=== PATIENT | male | born 1945 | race Caucasian/White ===

== ENCOUNTER → 2016-06-19 | Outpatient (CLI) | payer OTHER ==
[2013-10-12 19:07] VITALS: BP 130/80
[2016-06-19 10:17] LABS: CREATININE 1.02 mg/dL (0.70-1.30)
--- NOTE | 2016-06-19 14:51 | MRI ---
STUDY: MRI OF THE BRAIN WITHOUT AND WITH GADOLINIUM HISTORY: Mild cognitive impairment. Altered mental status. Forgetfulness. Technique: Multiplanar multi-sequence MRI of the brain was obtained utilizing standard departmental protocol. Sagittal and axial T1, axial T2, FLAIR, diffusion (DWI/ADC) images through the brain were performed. 18 cc of Omniscan was administered intravenously without reported complication following acquisition of informed written consent. Post gadolinium axial and coronal T1 weighted images were also perform ed and reviewed. Comparison: Head CT dated October 11, 2013. Findings: Pre gadolinium brain: The sulci, cisterns and ventricles are prominent consistent with diffuse volum e loss. There are scattered foci of T2 prolongation in the periventricular and subcortical white mat ter of both hemispheres. This is a nonspecific finding which likely represents mild microangiopathic change in a patient of this age. There is no evidence of acute territorial infarction, hemorrhage, mass, mass effect, or midline shif t. There are no abnormal intra-axial or extra-axial fluid collections. The major intracranial vascular flow voids appear intact. The left vertebral artery is dominant. The re is bilateral aphakia. Post gadolinium brain: Following the uneventful administration of intravenous gadolinium, there is n o evidence of abnormal parenchymal or leptomeningeal enhancement. IMPRESSION: 1. No evidence of acute intracranial abnormality. 2. Nonspecific white matter change and volume loss. Reported By:
== END ==
LOC: RAD 09:46
PROVIDERS: ATTEND Internal Medicine
DX: G31.84 Mild cognitive impairment of uncertain or unknown etiology (principal); E29.1 Testicular hypofunction
CPT/HCPCS: 36415; 70553; 82565; 84520

== ENCOUNTER → 2017-05-18 | Outpatient (CLI) | payer OTHER ==
[2013-10-12 19:07] VITALS: BP 130/80
[2017-05-18 09:53] LABS: CRYPTOSPORIDIUM PARVUM ANTIGEN NEGATIVE (NEGATIVE); GIARDIA LAMBLIA ANTIGEN NEGATIVE (NEGATIVE)
[2017-05-18 09:54] LABS: STOOL FOR WBC NEGATIVE (NEGATIVE)
== END ==
LOC: LAB 08:22
PROVIDERS: ATTEND Internal Medicine
DX: R19.7 Diarrhea, unspecified (principal); B96.89 Other specified bacterial agents as the cause of diseases classified elsewhere
CPT/HCPCS: 82274; 83630; 87045; 87328; 87329; 87336; 87427; 87449; 87493

== ENCOUNTER 2017-07-02 07:27 | Day surgery (SDC) | payer OTHER ==
[2017-07-02] MEDS ORDERED: D5 LR 1000 ML 1,000 ML IV ONE (07:32)
[2017-07-02] MEDS ORDERED: DIPRIVAN VIAL 20 ML ONE ×2 (09:24→09:48)
[2017-07-02 10:16] VITALS: BP 100/56
== END 2017-07-02 10:21 | disposition home or self-care (01) ==
LOC: SURG1 07:27
PROVIDERS: ATTEND Internal Medicine Gastroenterology
PROC: 0DBL8ZX Excision of Transverse Colon, Via Natural or Artificial Opening Endoscopic, Diagnostic (ICD-10-PCS; principal; 2017-07-02 09:00)
PROC: 0DBK8ZX Excision of Ascending Colon, Via Natural or Artificial Opening Endoscopic, Diagnostic (ICD-10-PCS; principal; 2017-07-02 09:00)
PROC: 0DBH8ZX Excision of Cecum, Via Natural or Artificial Opening Endoscopic, Diagnostic (ICD-10-PCS; principal; 2017-07-02 09:00)
PROC: 0DJD8ZZ Inspection of Lower Intestinal Tract, Via Natural or Artificial Opening Endoscopic (ICD-10-PCS; principal; 2017-07-02 09:00)
DX: Z12.11 Encounter for screening for malignant neoplasm of colon (principal); R19.4 Change in bowel habit; R10.31 Right lower quadrant pain; R10.32 Left lower quadrant pain; K63.5 Polyp of colon; K64.0 First degree hemorrhoids; K57.30 Diverticulosis of large intestine without perforation or abscess without bleeding; Z86.010 Personal history of colon polyps; D12.3 Benign neoplasm of transverse colon; D12.2 Benign neoplasm of ascending colon; D12.0 Benign neoplasm of cecum
CPT/HCPCS: 99100; A4217; J3490; J7120

== ENCOUNTER 2018-05-31 16:40 | Inpatient (IN) ==
[2018-05-31] MEDS ORDERED: VSL#3 PO SCH (18:15)
[2018-05-31 19:07] LABS: BASOPHILS % (AUTO) 0.5 % (0.2-1.0); EOSINOPHILS % (AUTO) 0.2 % (0.9-2.9); HEMATOCRIT 39.3 % (42.0-54.0); LYMPHOCYTES # (AUTO) 1.1 X10^3/uL (1.3-2.9); LYMPHOCYTES % (AUTO) 23.6 % (21.0-51.0); MEAN CORPUSCULAR HEMOGLOBIN 30.5 pg (27.0-34.0); MEAN CORPUSCULAR HGB CONC 33.2 g/dL (33.0-35.0); MEAN CORPUSCULAR VOLUME 91.9 fL (80.0-100.0); MEAN PLATELET VOLUME 8.1 fL (7.4-11.0); MONOCYTES # (AUTO) 0.5 x10^3/uL (0.3-0.8); MONOCYTES % (AUTO) 9.4 % (0.0-13.0); NEUTROPHILS # (AUTO) 3.2 x10^3/uL (2.2-4.8); NEUTROPHILS % (AUTO) 66.3 % (42.0-75.0); PLATELET COUNT 140 X10^3/uL (150.0-450.0); RED BLOOD COUNT 4.27 X10^6/uL (4.7-6.0); WHITE BLOOD COUNT 4.8 X10^3/uL (3.6-10.0)
[2018-05-31 19:20] LABS: ALANINE AMINOTRANSFERASE 31 Units/L (12-78); ALBUMIN 3.1 g/dL (3.4-5.0); ALKALINE PHOSPHATASE 52 Units/L (46-116); ASPARTATE AMINO TRANSFERASE 32 Units/L (15-37); BLOOD UREA NITROGEN 12 mg/dL (7-18); CALCIUM 8.9 mg/dL (8.5-10.1); CHLORIDE 99 mmol/L (98-107); COR CA(FOR HYPOALB) 9.6 mg/dL (8.5-10.1); CREATININE 1.18 mg/dL (0.70-1.30); SODIUM 137 mmol/L (136-145); TOTAL PROTEIN 7.1 g/dL (6.4-8.2); eGFR NON BLACK RACES > 60 (>60)
[2018-05-31] MEDS ORDERED: NS 1/2 1000 ML IV 1,000 ML ONE (19:51)
[2018-05-31] MEDS: NS 1/2 1000 ML IV 1,000 ML IV SCH (20:05)
[2018-05-31] MEDS: ROBITUSSIN DM PO SCH (20:50)
[2018-05-31] MEDS: LEVAQUIN PREMIX IV 500 MG 500 MG/100 ML BAG IV SCH (20:51)
[2018-05-31] MEDS: FORTAZ or TAZICEF VIAL INJ IVP SCH ×2 (20:58→22:00)
[2018-05-31 21:08] VITALS: BMI 23.7
[2018-05-31] MEDS: DUONEB 0.5 MG/3 MG NEB SCH (21:09)
[2018-06-01] MEDS: DUONEB 0.5 MG/3 MG NEB SCH ×6 (01:28→21:02)
[2018-06-01 05:13] LABS: BASOPHILS % (AUTO) 0.4 % (0.2-1.0); EOSINOPHILS % (AUTO) 0.4 % (0.9-2.9); HEMATOCRIT 34.9 % (42.0-54.0); HEMOGLOBIN 11.6 g/dL (13.5-18.0); LYMPHOCYTES # (AUTO) 0.5 X10^3/uL (1.3-2.9); MEAN CORPUSCULAR HEMOGLOBIN 30.5 pg (27.0-34.0); MEAN CORPUSCULAR HGB CONC 33.2 g/dL (33.0-35.0); MONOCYTES # (AUTO) 0.4 x10^3/uL (0.3-0.8); MONOCYTES % (AUTO) 12.7 % (0.0-13.0); NEUTROPHILS # (AUTO) 2.2 x10^3/uL (2.2-4.8); NEUTROPHILS % (AUTO) 71.5 % (42.0-75.0); PLATELET COUNT 121 X10^3/uL (150.0-450.0); RED BLOOD COUNT 3.79 X10^6/uL (4.7-6.0); RED CELL DISTRIBUTION WIDTH 18.4 % (11.6-16.5); WHITE BLOOD COUNT 3.1 X10^3/uL (3.6-10.0)
[2018-06-01 05:25] LABS: ALANINE AMINOTRANSFERASE 25 Units/L (12-78); ALBUMIN 2.6 g/dL (3.4-5.0); ALKALINE PHOSPHATASE 45 Units/L (46-116); ASPARTATE AMINO TRANSFERASE 27 Units/L (15-37); BLOOD UREA NITROGEN 10 mg/dL (7-18); CALCIUM 8.4 mg/dL (8.5-10.1); CARBON DIOXIDE 26.6 mmol/L (21-32); CHLORIDE 100 mmol/L (98-107); COR CA(FOR HYPOALB) 9.5 mg/dL (8.5-10.1); CREATININE 1.09 mg/dL (0.70-1.30); SODIUM 137 mmol/L (136-145); TOTAL PROTEIN 6.2 g/dL (6.4-8.2); eGFR NON BLACK RACES > 60 (>60)
[2018-06-01] MEDS ORDERED: NS 100 ML IV 100 ML ONE (05:25)
[2018-06-01] MEDS ORDERED: POTASSIUM CHL 40 MEQ/NS 0.45% 500 ML IV PRN (05:38)
[2018-06-01] MEDS ORDERED: POTASSIUM CHL 60 MEQ/NS 0.45% 500 ML IV PRN (05:38)
[2018-06-01] MEDS ORDERED: K-RIDER 10 MEQ/NS 100 ML 10 MEQ/100 ML BAG IV PRN (05:38)
[2018-06-01] MEDS ORDERED: POTASSIUM CHLORIDE LIQ 20 MEQ UDC PO PRN (05:38)
[2018-06-01] MEDS ORDERED: MICRO K EXTEN CAP 10 MEQ PO PRN (05:38)
--- NOTE | 2018-06-01 05:47 | CT ---
HISTORY: Dizziness and cough with fever Study: CT brain without contrast Comparison: 06/12/2017 Technique: Multiple axial images of the brain were obtained from the skull base to the vertex without administration of IV contrast. Findings: No acute intraparenchymal hemorrhage or mass can be identified. No extra-axial fluid collections are seen. No alteration in the attenuation of the brain parenchyma can be identified to suggest acute or subacute ischemic change. The ventricular system is symmetric and nondilated. The extracranial structures are grossly unremarkable. IMPRESSION: 1. No acute intracranial process can be identified. Reported By:
--- NOTE | 2018-06-01 05:50 | CT ---
HISTORY: Dizziness with cough and fever Study: CTA chest with contrast Comparison: 09/28/2015 Technique: Multiple axial images of the chest were obtained from the thoracic inlet to the upper abdomen after the administration of IV contrast. 3D reconstructions utilizing axial MIPS imaging was performed and reviewed Findings: The mediastinum does not demonstrate significant pathological lymphadenopathy. There is no paracardial effusion observed. The thoracic aorta is normal in its contour without evidence for aneurysmal dilatation. The central pulmonary arterial system does not demonstrate central filling defects to suggest pulmonary emboli. Evaluation of the lung parenchyma demonstrates mild bullous disease within the right and left apical lung zone without focal infiltrate or effusion.. Calcified pulmonary granuloma within the left lower lobe is noted to be present. The bony thorax is unremarkable in its appearance. The visualized portions of the upper abdomen are grossly unremarkable. IMPRESSION: A calcified pulmonary granuloma within the left lower lobe is observed. Mild bullous disease the right and left apical lung zone. No acute cardiopulmonary disease can be identified. Reported By:
--- NOTE | 2018-06-01 06:01 | RAD ---
HISTORY: Cough, dizziness Study: Chest PA and lateral Comparison: 06/12/2017, CT chest 05/31/2018 Findings: The heart is within normal limits in size. The pedro are normal. The lungs are hyperinflated but free of acute alveolar infiltrates. No pleural effusions are identified. The bony thorax is unremarkable. IMPRESSION: Lungs hyperinflated but clear, consistent with COPD in the appropriate clinical setting Reported By:
[2018-06-01] MEDS: FORTAZ or TAZICEF VIAL INJ IVP SCH ×3 (06:53→21:39)
--- NOTE | 2018-06-01 07:26 | RAD ---
HISTORY: Shortness of breath Study: Chest AP portable Comparison: 05/31/2018 Findings: The heart is within normal limits in size. The pedro are normal. The aorta is calcified. The lungs are mildly hyperinflated but free of acute infiltrates. Interstitial lung changes are present. No pleural effusions are identified. The bony thorax is unremarkable. IMPRESSION: Lungs hyperinflated but free of acute alveolar infiltrates Mild interstitial Reported By:
[2018-06-01] MEDS ORDERED: NS 1/2 1000 ML IV 1,000 ML ONE (08:16)
[2018-06-01] MEDS: CULTURELLE PRO-WELL PROBIOTIC CAP PO SCH (08:20)
[2018-06-01] MEDS: NS 1/2 1000 ML IV 1,000 ML IV SCH (08:20)
[2018-06-01] MEDS: ROBITUSSIN DM PO SCH ×4 (08:20→21:37)
[2018-06-01] MEDS: LEVAQUIN PREMIX IV 500 MG 500 MG/100 ML BAG IV SCH (08:20)
--- NOTE | 2018-06-01 09:13 | DR.UPDATE ---
H&P Update History and Physical Update: WAS SEEN IN THE OFFICE TODAY FOR COMPLAINTS OF A PRODUCTIVE COUGH, SHORNTESS OF BREATH, FEVER, CHILLS, AND DIZZINESS. HE ALSO REPORTED NAUSEA AND VOMITING THAT HE BELIEVES IS FROM THE NASAL DRAINAGE. HE REPORTED TAKING AUGMENTIN 875/125MG PO BID AND RESPIRATORY TREATMENTS AT HOME WITHOUT IMPROVEM ENT IN SYMPTOMS. HE WAS ADMITTED FOR FURTHER EVALUATION AND TREATMENT OF BRONCHOPNEUMONIA, FEVER, CHILLS, AND N/V. A H&P WAS COMPLETED PRIOR TO ADMISSION. WE PLAN TO OBTAIN LABS, CHEST XRAY, CHEST CT, BRAIN CT. WE WILL START IV ANTIBIOTICS AND RESPIRATORY TREATMENTS. OTHERWISE, WE WILL FOLLOW UP WITH AM LABS AND CONTINUE TO MONITOR. PATIENT HAS BEEN SEEN AND EXAMINED WITH NO CHANGES NOTED TO H&P. Changes noted: NO
[2018-06-01] MEDS ORDERED: ANTIVERT TAB 25 MG PO PRN (09:16)
[2018-06-01] MEDS: MAGNESIUM SULFATE 1 GRAM/100 mL PREMIX 1 GM/100 ML BAG IV PRN ×2 (09:29→10:43)
[2018-06-01] MEDS: K-DUR TAB 20 MEQ PO PRN (09:29)
[2018-06-01] MEDS ORDERED: FLONASE NASAL SPRAY ENOSTRIL SCH (09:30)
[2018-06-01] MEDS ORDERED: ASPIRIN EC 81 MG PO ONE (09:32)
[2018-06-01] MEDS ORDERED: ZESTRIL TAB 10 MG ONE (09:32)
[2018-06-01] MEDS ORDERED: SINGULAIR TAB 10 MG ONE (09:32)
[2018-06-01] MEDS ORDERED: PROTONIX TAB 40 MG ONE (09:33)
[2018-06-01] MEDS ORDERED: PEPCID TAB 20 MG ONE (09:33)
[2018-06-01] MEDS: ASPIRIN EC 81 MG PO SCH (09:37)
[2018-06-01] MEDS: ZESTRIL TAB 10 MG PO SCH ×2 (09:38→21:38)
[2018-06-01] MEDS: PEPCID TAB 20 MG PO SCH ×2 (09:38→21:38)
[2018-06-01] MEDS: SINGULAIR TAB 10 MG PO SCH (09:38)
[2018-06-01] MEDS: PROTONIX TAB 40 MG PO SCH ×2 (09:39→21:38)
[2018-06-01] MEDS ORDERED: NS 100 ML IV + SPIKE MINIBAG* 100 ML ONE (12:48)
[2018-06-01] MEDS ORDERED: LEVSIN/MAALOX/LIDOC VISC ONE (14:52)
[2018-06-01] MEDS: LEVSIN/MAALOX/LIDOC VISC PO PRN ×2 (15:00→21:37)
--- NOTE | 2018-06-01 16:22 | MRI ---
MRI BRAIN WITHOUT CONTRAST CLINICAL HISTORY: 73-year-old male with falls, weakness and dizziness. Patient complains of headache and blurred vision. COMPARISON: None. TECHNIQUE: Multiplanar, multisequence MR images of the brain were obtained without contrast. FINDINGS: There is no evidence of diffusion restriction. The craniocervical junction is normal. Pituitary and optic nerve complex are normal. Few scattered punctate T2 FLAIR signal hyperintensities are present within the subcortical, juxtacortical, periventricular and supraventricular white matter that are nonspecific in appearance but most likely to represent microvascular white matter ischemic changes. Normal signal characteristics and morphology are demonstrated within the cerebral cortex, corpus callosum, deep silva nuclei, brainstem and cerebellum. The major vascular flow voids, to include the dural venous sinuses, are intact. No abnormal susceptibility on gradient imaging. Age advanced cortical volume loss is present, with commensurate sulcal and ventricular prominence. The basilar cisterns are normal. Bilateral aphakia. The orbits and globes are otherwise within normal limits. Trace mucosal thickening frontal sinuses, maxillary and sphenoid sinuses with significant mucosal thickening throughout the ethmoid labyrinth with small polyps within the posterior nasopharynx within the middle meatus on the left and arising from the superior meatus on the right. Mastoid air cells and tympanic cavities are clear. IMPRESSION: 1. No acute ischemic or hemorrhagic insult. 2. Mild, chronic microvascular white matter ischemic disease with associated volume loss. 3. Mucosal thickening of the paranasal sinuses with nasal polyps as described above. Correlate clinically and recommend outpatient follow-up with otolaryngology. Reported By:
[2018-06-01] MEDS ORDERED: CRESTOR TAB 10 MG PO SCH (21:00)
[2018-06-01] MEDS ORDERED: ALFUZOSIN 10 MG PO SCH (21:00)
[2018-06-01] MEDS: ARICEPT TAB 10 MG PO SCH (21:38)
[2018-06-02] MEDS ORDERED: MAALOX or MYLANTA PO PRN (00:01)
[2018-06-02] MEDS: ZOFRAN TAB 4 MG PO PRN ×2 (00:02→23:20)
[2018-06-02] MEDS ORDERED: MAALOX or MYLANTA ONE (00:06)
[2018-06-02] MEDS ORDERED: NS 1/2 1000 ML IV 1,000 ML ONE ×2 (00:07→13:53)
[2018-06-02] MEDS: NS 1/2 1000 ML IV 1,000 ML IV SCH ×2 (00:14→13:58)
[2018-06-02] MEDS: DUONEB 0.5 MG/3 MG NEB SCH ×5 (00:51→16:30)
[2018-06-02] MEDS: LEVSIN/MAALOX/LIDOC VISC PO PRN ×2 (01:36→20:22)
[2018-06-02 05:20] LABS: BASOPHILS % (AUTO) 0.6 % (0.2-1.0); EOSINOPHILS % (AUTO) 1.1 % (0.9-2.9); HEMATOCRIT 35.4 % (42.0-54.0); HEMOGLOBIN 11.8 g/dL (13.5-18.0); LYMPHOCYTES # (AUTO) 0.4 X10^3/uL (1.3-2.9); LYMPHOCYTES % (AUTO) 19.7 % (21.0-51.0); MEAN CORPUSCULAR HEMOGLOBIN 30.6 pg (27.0-34.0); MEAN CORPUSCULAR HGB CONC 33.3 g/dL (33.0-35.0); MEAN CORPUSCULAR VOLUME 91.9 fL (80.0-100.0); MEAN PLATELET VOLUME 7.8 fL (7.4-11.0); MONOCYTES # (AUTO) 0.3 x10^3/uL (0.3-0.8); MONOCYTES % (AUTO) 15.1 % (0.0-13.0); NEUTROPHILS # (AUTO) 1.4 x10^3/uL (2.2-4.8); NEUTROPHILS % (AUTO) 63.5 % (42.0-75.0); PLATELET COUNT 120 X10^3/uL (150.0-450.0); RED BLOOD COUNT 3.86 X10^6/uL (4.7-6.0); WHITE BLOOD COUNT 2.2 X10^3/uL (3.6-10.0)
[2018-06-02 05:38] LABS: ALANINE AMINOTRANSFERASE 24 Units/L (12-78); ALBUMIN 2.7 g/dL (3.4-5.0); ALKALINE PHOSPHATASE 46 Units/L (46-116); ASPARTATE AMINO TRANSFERASE 30 Units/L (15-37); BLOOD UREA NITROGEN 7 mg/dL (7-18); CALCIUM 8.4 mg/dL (8.5-10.1); CHLORIDE 103 mmol/L (98-107); COR CA(FOR HYPOALB) 9.4 mg/dL (8.5-10.1); CREATININE 1.06 mg/dL (0.70-1.30); SODIUM 137 mmol/L (136-145); TOTAL PROTEIN 6.2 g/dL (6.4-8.2); eGFR NON BLACK RACES > 60 (>60)
[2018-06-02 06:10] LABS: BAND NEUTROPHILS % 1 % (0-10)
[2018-06-02 06:11] LABS: PLATELET MORPHOLOGY COMMENT NORMAL (NORMAL)
[2018-06-02] MEDS: FORTAZ or TAZICEF VIAL INJ IVP SCH ×3 (06:12→21:11)
[2018-06-02] MEDS: KLOR-CON PO PRN (06:19)
[2018-06-02] MEDS: TUSSIONEX PENNKINETIC SUSP PO PRN (06:52)
--- NOTE | 2018-06-02 06:55 | RAD ---
HISTORY: Angina Study: Chest AP portable Comparison: 05/31/2018 Findings: The heart is within normal limits in size. The pedro are normal. The aorta is calcified. The lungs are free of acute alveolar infiltrates. Mild stable interstitial lung changes are present likely chronic. No acute alveolar infiltrates or pleural effusions are identified. The bony thorax is unremarkable. IMPRESSION: Mild interstitial lung changes, stable Reported By:
--- NOTE | 2018-06-02 08:41 | PCM.PROG ---
Progress Note - Progress Note for Day of Date of Exam: 06/01/18 - Subjective Subjective: WAS ADMITTED FOR BRONCHOPNEUMONIA, FEVER, AND DIZZINESS. TODAY, HE IS ALERT AND ORIENTED, LYING IN BED ON MORNING ROUNDS. HE CONTINUES WITH COMPLAINTS OF SHORNTESS OF BREATH AND A PRODUCTIVE COUGH. HE ALSO CONTINUES WITH WEAKNESS AND DIZZINESS. SPOUSE REPORTS THAT HE HAS FALLEN A LOT AT HOME LATELY. ON EXAMINATION, HEART IS REGULAR IN RATE AND RHYTHM. HE CONTINUES WITH SCATTERED WHEEZING. ABDOMEN IS ROUND, SOFT, AND NON-TENDER WITH NORMAL BOWEL SOUNDS NOTED IN ALL QUADRANTS. HIS VITALS THIS MORNING ARE 98.7-88-20-92%RA-161/72. LABS WERE OBTAINED. ABNORMAL LAB VALUES INCLUDE THE FOLLOWING: WBC 3.1, RBC 3.79, HGB 11.6, HCT 34.9, PLT COUNT 121, POTASSIUM 2.9, CALCIUM 8.4, ALK PHOS 45, TOTAL PROTEIN 6.2 ,ALBUMIN 2.6. BLOOD AND SPUTUM CULTURE PENDING. GRAM STAIN REPORTS MODERATED GRAM POSITIVE COCCI. A CHEST XRAY WAS OBTAINED TODAY AND REVEALED: Lungs hyperinflated but free of acute alveolar infiltrates. Mild interstitial. CHEST CT WAS OBTAINED ON ADMISSION AND REVEALED: A calcified pulmonary granuloma within the left lower lobe is observed. Mild bullous disease the right and left apical lung zone. No acute cardiopulmonary disease can be identified. A BRAIN CT WAS OBTAINED AND REVEALED: No acute intracranial process can be identified. HE IS CURRENTLY RECEIVING IV ANTI BIOTICS, RESPIRATORY TX, AND SUPPLEMENTAL OXYGEN. TODAY, WE WILL OBTAIN A BRAIN MRI AND OBTAIN ORTHOSTATIC BLOOD PRESSURES. OTHERWISE, WE WILL FOLLOW UP WITH AM LABS AND CONTINUE TO MONITOR. - Past Medical Family Social History Past Med/Fam/Surg Hx: No changes since H&P Allergies: Allergies No Known Drug Allergies Allergy (Verified 07/02/17 07:39) - Review of Systems ROS: No change since H&P - Vital Signs and I&O's Vital Signs: Temperature 98.4 F Pulse Rate [Right Brachial] 84 Pulse Rate 101 Respiratory Rate 18 Blood Pressure [Left Arm] 160/70 Blood Pressure [Standing] 122/68 Blood Pressure [Sitting] 142/69 Blood Pressure [Lying] 108/65 Blood Pressure 125/63 O2 Sat by Pulse Oximetry 94 Intake and Output: Intake & Output 05/30/18 05/31/18 06/01/18 06/02/18 11:59 11:59 11:59 11:59 Intake Total 1170 / 1170 3050 / 3050 Output Total 600 / 600 Balance 1170 / 1170 2450 / 2450 - Physical Exam Oriented: Normal Eyes: Normal Ear: Normal Nose: Normal Throat: Normal Respiratory: Generalized, Wheezes Cardiovascular: Normal : Normal Auscultation: Bowel Sounds: Normal Palpation: Normal Tenderness: Normal Skin: Normal Musculoskeletal: Normal Psychiatric: Normal Mood Description: Calm Affect: Normal Speech Pattern: Clear, Appropriate - Laboratory and Diagnostics Result Diagrams: 06/02/18 04:52 06/02/18 04:52 Labs: 05/31/18 21:15 Sputum - Expectorated Sputum - Final Laboratory WBC 2.2 X10^3/uL (3.6-10.0) L 06/02/18 04:52 RBC 3.86 X10^6/uL (4.7-6.0) L 06/02/18 04:52 Hgb 11.8 g/dL (13.5-18.0) L 06/02/18 04:52 Hct 35.4 % (42.0-54.0) L 06/02/18 04:52 MCV 91.9 fL (80.0-100.0) 06/02/18 04:52 MCH 30.6 pg (27.0-34.0) 06/02/18 04:52 MCHC 33.3 g/dL (33.0-35.0) 06/02/18 04:52 RDW 19.0 % (11.6-16.5) H 06/02/18 04:52 Plt Count 120 X10^3/uL (150.0-450.0) L 06/02/18 04:52 Plt Count Comment Adequate (ADEQUATE) 06/02/18 04:52 MPV 7.8 fL (7.4-11.0) 06/02/18 04:52 Neut % (Auto) 63.5 % (42.0-75.0) 06/02/18 04:52 Lymph % (Auto) 19.7 % (21.0-51.0) L 06/02/18 04:52 Duval % (Auto) 15.1 % (0.0-13.0) H 06/02/18 04:52 Eos % (Auto) 1.1 % (0.9-2.9) 06/02/18 04:52 Baso % (Auto) 0.6 % (0.2-1.0) 06/02/18 04:52 Neut # (Auto) 1.4 x10^3/uL (2.2-4.8) L 06/02/18 04:52 Lymph # (Auto) 0.4 X10^3/uL (1.3-2.9) L 06/02/18 04:52 Duval # (Auto) 0.3 x10^3/uL (0.3-0.8) 06/02/18 04:52 Eos # (Auto) 0.0 x10^3/uL (0.0-0.2) 06/02/18 04:52 Baso # (Auto) 0.0 X10^3/uL (0.0-0.1) 06/02/18 04:52 Absolute Nucleated RBC 0.2 /100WBC 06/02/18 04:52 Total Counted 100 06/02/18 04:52 Neutrophils % (Manual) 67 % (39-76) 06/02/18 04:52 Band Neutrophils % 1 % (0-10) 06/02/18 04:52 Lymphocytes % (Manual) 20 % (13-43) 06/02/18 04:52 Monocytes % (Manual) 10 % (4-9) H 06/02/18 04:52 Eosinophils % (Manual) 2 % (0-6) 06/02/18 04:52 Plt Morphology Comment Normal (NORMAL) 06/02/18 04:52 RBC Morphology Normal (NORMAL) 06/02/18 04:52 Sodium 137 mmol/L (136-145) 06/02/18 04:52 Corrected Sodium TNP 06/02/18 04:52 Potassium 3.3 mmol/L (3.5-5.1) L 06/02/18 04:52 Chloride 103 mmol/L (98-107) 06/02/18 04:52 Carbon Dioxide 24.0 mmol/L (21-32) 06/02/18 04:52 BUN 7 mg/dL (7-18) 06/02/18 04:52 Creatinine 1.06 mg/dL (0.70-1.30) 06/02/18 04:52 Est GFR (MDRD) Af Amer > 60 (>60) 06/02/18 04:52 Est GFR (MDRD) Non-Af > 60 (>60) 06/02/18 04:52 Glucose 92 mg/dL (65-99) 06/02/18 04:52 Calcium 8.4 mg/dL (8.5-10.1) L 06/02/18 04:52 Corrected Calcium 9.4 mg/dL (8.5-10.1) 06/02/18 04:52 Magnesium 2.0 mg/dL (1.7-2.9) 06/02/18 04:52 Total Bilirubin 0.30 mg/dL (0.2-1.0) 06/02/18 04:52 AST 30 Units/L (15-37) 06/02/18 04:52 ALT 24 Units/L (12-78) 06/02/18 04:52 Alkaline Phosphatase 46 Units/L (46-116) 06/02/18 04:52 Total Protein 6.2 g/dL (6.4-8.2) L 06/02/18 04:52 Albumin 2.7 g/dL (3.4-5.0) L 06/02/18 04:52 Globulin 3.5 g/dL (2.5-4.5) 06/02/18 04:52 Albumin/Globulin Ratio 0.8 Ratio (1.1-2.1) L 06/02/18 04:52 - Plan (1) Bronchopneumonia Status: Acute Plan: IV LEVAQUIN, IV FORTAZ, RESPIRATORY TX, SUPPLEMENTAL OXYGEN, CONTINUE TO MONITOR (2) Generalized weakness Status: Acute Plan: OBTAIN BRAIN MRI, CONTINUE TO MONITOR (3) Dizziness Status: Acute (4) Frequent falls Status: Acute
[2018-06-02] MEDS: ROBITUSSIN DM PO SCH ×4 (08:56→20:25)
[2018-06-02] MEDS: ASPIRIN EC 81 MG PO SCH (08:56)
[2018-06-02] MEDS: SINGULAIR TAB 10 MG PO SCH (08:56)
[2018-06-02] MEDS: CULTURELLE PRO-WELL PROBIOTIC CAP PO SCH (08:56)
[2018-06-02] MEDS: LEVAQUIN PREMIX IV 500 MG 500 MG/100 ML BAG IV SCH (08:57)
[2018-06-02] MEDS: PROTONIX TAB 40 MG PO SCH ×2 (08:57→20:24)
[2018-06-02] MEDS: PEPCID TAB 20 MG PO SCH ×2 (08:57→20:24)
[2018-06-02] MEDS: ZESTRIL TAB 10 MG PO SCH ×2 (08:57→20:24)
[2018-06-02] MEDS: ECOTRIN TAB 325 MG PO SCH (10:10)
[2018-06-02] MEDS: K-DUR TAB 20 MEQ PO PRN (18:47)
--- NOTE | 2018-06-02 19:46 | PCM.PROG ---
Progress Note - Progress Note for Day of Date of Exam: 06/02/18 - Subjective Subjective: WAS ADMITTED FOR BRONCHOPNEUMONIA, FEVER, AND DIZZINESS. TODAY, HE IS ALERT AND ORIENTED, LYING IN BED ON MORNING ROUNDS. HE CONTINUES WITH COMPLAINTS OF SHORNTESS OF BREATH , PRODUCTIVE COUGH, AND GENERALIZED WEAKNESS. ON EXAMINATION, HEART IS REGULAR IN RATE AND RHYTHM. HE CONTINUES WITH SCATTERED WHEEZING. ABDOMEN IS ROUND, SOFT, AND NON-TENDER WITH NORMAL BOWEL SOUNDS NOTED IN ALL QUADRANTS. HIS VITALS THIS MORNING ARE 98.4-84-18-94%-160/70. LABS WERE OBTAINED. ABNORMAL LAB VALUES INCLUDE THE FOLLOWING: WBC 2.2, RBC 3.86, HGB 11.8, HCT 35.4, POTASSIUM 3.3, CALCIUM 8.4, TOTAL PROTEIN 6.2, ALBUMIN 2.7. BLOOD AND SPUTUM CULTURE PENDING. GRAM STAIN REPORTS MODERATED GRAM POSITIVE COCCI. A CHEST XRAY WAS OBTAINED TODAY AND REVEALED: MILD, INTERSTITIAL LUNG CHANGES, STABLE. A BRAIN MRI WAS OBTAINED YESTERDAY AND REVEALED: No acute ischemic or hemorrhagic insult. Mild, chronic microvascular white matter ischemic disease with associated volume loss. Mucosal thickening of the paranasal sinuses with nasal polyps as described above. Correlate clinically and recommend outpatient follow-up with otolaryngology. HE IS CURRENTLY RECEIVING IV ANTIBIOTICS, RESPIRATORY TX, AND SUPPLEMENTAL OXYGEN. TODAY, WE WILL START ECOTRIN 325MG PO DAILY, INCREASE CRESTOR TO 40MG HS, AND START AMLODIPINE 5MG HS. OTHERWISE, WE WILL FOLLOW UP WITH AM LABS AND CONTINUE TO MONITOR. - Past Medical Family Social History Past Med/Fam/Surg Hx: No changes since H&P Allergies: Allergies No Known Drug Allergies Allergy (Verified 07/02/17 07:39) - Review of Systems ROS: No change since H&P - Vital Signs and I&O's Vital Signs: Temperature 98.0 F Pulse Rate [Left Brachial] 80 Pulse Rate [Right Brachial] 84 Pulse Rate 92 Respiratory Rate 18 Blood Pressure [Left Arm] 162/88 Blood Pressure [Standing] 122/68 Blood Pressure [Sitting] 142/69 Blood Pressure [Lying] 108/65 Blood Pressure 125/63 O2 Sat by Pulse Oximetry 96 Intake and Output: Intake & Output 05/31/18 06/01/18 06/02/18 06/03/18 11:59 11:59 11:59 11:59 Intake Total 1170 / 1170 3050 / 3050 1160 / 1160 Output Total 600 / 600 Balance 1170 / 1170 2450 / 2450 1160 / 1160 - Physical Exam Oriented: Normal Eyes: Normal Ear: Normal Nose: Normal Throat: Normal Respiratory: Generalized, Wheezes Cardiovascular: Normal : Normal Auscultation: Bowel Sounds: Normal Palpation: Normal Tenderness: Normal Skin: Normal Musculoskeletal: Normal Psychiatric: Normal Mood Description: Calm Affect: Normal Speech Pattern: Clear, Appropriate - Laboratory and Diagnostics Result Diagrams: 06/02/18 04:52 06/02/18 08:32 Labs: 05/31/18 18:55 Blood Blood Culture - Preliminary 05/31/18 18:50 Blood Blood Culture - Preliminary 05/31/18 21:15 Sputum - Expectorated Sputum Sputum Culture - Preliminary 05/31/18 21:15 Sputum - Expectorated Sputum - Final Laboratory WBC 2.2 X10^3/uL (3.6-10.0) L 06/02/18 04:52 RBC 3.86 X10^6/uL (4.7-6.0) L 06/02/18 04:52 Hgb 11.8 g/dL (13.5-18.0) L 06/02/18 04:52 Hct 35.4 % (42.0-54.0) L 06/02/18 04:52 MCV 91.9 fL (80.0-100.0) 06/02/18 04:52 MCH 30.6 pg (27.0-34.0) 06/02/18 04:52 MCHC 33.3 g/dL (33.0-35.0) 06/02/18 04:52 RDW 19.0 % (11.6-16.5) H 06/02/18 04:52 Plt Count 120 X10^3/uL (150.0-450.0) L 06/02/18 04:52 Plt Count Comment Adequate (ADEQUATE) 06/02/18 04:52 MPV 7.8 fL (7.4-11.0) 06/02/18 04:52 Neut % (Auto) 63.5 % (42.0-75.0) 06/02/18 04:52 Lymph % (Auto) 19.7 % (21.0-51.0) L 06/02/18 04:52 Parmer % (Auto) 15.1 % (0.0-13.0) H 06/02/18 04:52 Eos % (Auto) 1.1 % (0.9-2.9) 06/02/18 04:52 Baso % (Auto) 0.6 % (0.2-1.0) 06/02/18 04:52 Neut # (Auto) 1.4 x10^3/uL (2.2-4.8) L 06/02/18 04:52 Lymph # (Auto) 0.4 X10^3/uL (1.3-2.9) L 06/02/18 04:52 Parmer # (Auto) 0.3 x10^3/uL (0.3-0.8) 06/02/18 04:52 Eos # (Auto) 0.0 x10^3/uL (0.0-0.2) 06/02/18 04:52 Baso # (Auto) 0.0 X10^3/uL (0.0-0.1) 06/02/18 04:52 Absolute Nucleated RBC 0.2 /100WBC 06/02/18 04:52 Total Counted 100 06/02/18 04:52 Neutrophils % (Manual) 67 % (39-76) 06/02/18 04:52 Band Neutrophils % 1 % (0-10) 06/02/18 04:52 Lymphocytes % (Manual) 20 % (13-43) 06/02/18 04:52 Monocytes % (Manual) 10 % (4-9) H 06/02/18 04:52 Eosinophils % (Manual) 2 % (0-6) 06/02/18 04:52 Plt Morphology Comment Normal (NORMAL) 06/02/18 04:52 RBC Morphology Normal (NORMAL) 06/02/18 04:52 Sodium 137 mmol/L (136-145) 06/02/18 04:52 Corrected Sodium TNP 06/02/18 04:52 Potassium 3.5 mmol/L (3.5-5.1) 06/02/18 08:32 Chloride 103 mmol/L (98-107) 06/02/18 04:52 Carbon Dioxide 24.0 mmol/L (21-32) 06/02/18 04:52 BUN 7 mg/dL (7-18) 06/02/18 04:52 Creatinine 1.06 mg/dL (0.70-1.30) 06/02/18 04:52 Est GFR (MDRD) Af Amer > 60 (>60) 06/02/18 04:52 Est GFR (MDRD) Non-Af > 60 (>60) 06/02/18 04:52 Glucose 92 mg/dL (65-99) 06/02/18 04:52 Calcium 8.4 mg/dL (8.5-10.1) L 06/02/18 04:52 Corrected Calcium 9.4 mg/dL (8.5-10.1) 06/02/18 04:52 Magnesium 2.0 mg/dL (1.7-2.9) 06/02/18 04:52 Total Bilirubin 0.30 mg/dL (0.2-1.0) 06/02/18 04:52 AST 30 Units/L (15-37) 06/02/18 04:52 ALT 24 Units/L (12-78) 06/02/18 04:52 Alkaline Phosphatase 46 Units/L (46-116) 06/02/18 04:52 Total Protein 6.2 g/dL (6.4-8.2) L 06/02/18 04:52 Albumin 2.7 g/dL (3.4-5.0) L 06/02/18 04:52 Globulin 3.5 g/dL (2.5-4.5) 06/02/18 04:52 Albumin/Globulin Ratio 0.8 Ratio (1.1-2.1) L 06/02/18 04:52 - Plan (1) Bronchopneumonia Status: Acute Plan: IV LEVAQUIN, IV FORTAZ, RESPIRATORY TX, SUPPLEMENTAL OXYGEN, CONTINUE TO MONITOR (2) Generalized weakness Status: Acute Plan: OBTAIN BRAIN MRI, CONTINUE TO MONITOR (3) Dizziness Status: Acute (4) Frequent falls Status: Acute (5) Hypertension Status: Chronic Qualifiers: Hypertension type: essential hypertension Qualified Code(s): I10 - Essential (primary) hypertension Plan: CONTINUE LISINOPRIL, START AMLODIPINE 5MG PO HS
[2018-06-02] MEDS: CRESTOR TAB 10 MG PO SCH (20:24)
[2018-06-02] MEDS: ARICEPT TAB 10 MG PO SCH (20:25)
[2018-06-02] MEDS: NORVASC TAB 5 MG PO SCH (20:25)
[2018-06-03] MEDS ORDERED: NS 1/2 1000 ML IV 1,000 ML ONE ×2 (02:43→13:32)
[2018-06-03] MEDS: NS 1/2 1000 ML IV 1,000 ML IV SCH ×2 (02:56→16:11)
[2018-06-03] MEDS: XOPENEX 1.25 MG/3 ML NEBULE NEB SCH ×4 (05:05→17:05)
[2018-06-03 05:31] LABS: BASOPHILS % (AUTO) 0.8 % (0.2-1.0); EOSINOPHILS % (AUTO) 1.6 % (0.9-2.9); HEMATOCRIT 36.2 % (42.0-54.0); LYMPHOCYTES # (AUTO) 0.6 X10^3/uL (1.3-2.9); LYMPHOCYTES % (AUTO) 23.3 % (21.0-51.0); MEAN CORPUSCULAR HEMOGLOBIN 30.8 pg (27.0-34.0); MEAN CORPUSCULAR HGB CONC 33.2 g/dL (33.0-35.0); MEAN CORPUSCULAR VOLUME 92.8 fL (80.0-100.0); MEAN PLATELET VOLUME 7.9 fL (7.4-11.0); MONOCYTES # (AUTO) 0.4 x10^3/uL (0.3-0.8); MONOCYTES % (AUTO) 16.6 % (0.0-13.0); NEUTROPHILS # (AUTO) 1.5 x10^3/uL (2.2-4.8); NEUTROPHILS % (AUTO) 57.7 % (42.0-75.0); PLATELET COUNT 124 X10^3/uL (150.0-450.0); RED CELL DISTRIBUTION WIDTH 18.7 % (11.6-16.5); WHITE BLOOD COUNT 2.5 X10^3/uL (3.6-10.0)
[2018-06-03] MEDS: FORTAZ or TAZICEF VIAL INJ IVP SCH ×3 (05:32→21:00)
[2018-06-03] MEDS: TUSSIONEX PENNKINETIC SUSP PO PRN ×2 (05:32→22:53)
[2018-06-03 05:59] LABS: ALANINE AMINOTRANSFERASE 33 Units/L (12-78); ALBUMIN 2.6 g/dL (3.4-5.0); ALKALINE PHOSPHATASE 52 Units/L (46-116); ASPARTATE AMINO TRANSFERASE 43 Units/L (15-37); BLOOD UREA NITROGEN 4 mg/dL (7-18); CALCIUM 8.5 mg/dL (8.5-10.1); CARBON DIOXIDE 25.8 mmol/L (21-32); CHLORIDE 103 mmol/L (98-107); COR CA(FOR HYPOALB) 9.6 mg/dL (8.5-10.1); SODIUM 138 mmol/L (136-145); TOTAL PROTEIN 6.2 g/dL (6.4-8.2); eGFR NON BLACK RACES > 60 (>60)
[2018-06-03] MEDS: K-DUR TAB 20 MEQ PO PRN (06:14)
--- NOTE | 2018-06-03 06:55 | RAD ---
HISTORY: Shortness of breath Study: Chest AP portable Comparison: 06/02/2018 Findings: The heart is within normal limits in size. The pedro are normal. The aorta is calcified. The lungs are free of acute alveolar infiltrates. No pleural effusions are identified. Stable interstitial lung changes are present likely chronic. The bony thorax is unremarkable. IMPRESSION: Stable interstitial lung changes Reported By:
[2018-06-03] MEDS: ECOTRIN TAB 325 MG PO SCH (08:49)
[2018-06-03] MEDS: LEVAQUIN PREMIX IV 500 MG 500 MG/100 ML BAG IV SCH (08:49)
[2018-06-03] MEDS: SINGULAIR TAB 10 MG PO SCH (08:50)
[2018-06-03] MEDS: ZESTRIL TAB 10 MG PO SCH ×2 (08:50→20:53)
[2018-06-03] MEDS: CULTURELLE PRO-WELL PROBIOTIC CAP PO SCH (08:51)
[2018-06-03] MEDS: ROBITUSSIN DM PO SCH ×4 (08:51→20:53)
[2018-06-03] MEDS: PROTONIX TAB 40 MG PO SCH ×2 (08:51→20:53)
[2018-06-03] MEDS: PEPCID TAB 20 MG PO SCH ×2 (08:51→20:53)
[2018-06-03] MEDS: LEVSIN/MAALOX/LIDOC VISC PO PRN (20:52)
[2018-06-03] MEDS: CRESTOR TAB 10 MG PO SCH (20:53)
[2018-06-03] MEDS: ARICEPT TAB 10 MG PO SCH (20:53)
[2018-06-03] MEDS: NORVASC TAB 5 MG PO SCH (20:53)
[2018-06-04] MEDS: XOPENEX 1.25 MG/3 ML NEBULE NEB SCH ×2 (00:15→05:19)
[2018-06-04] MEDS: NS 1/2 1000 ML IV 1,000 ML IV SCH ×2 (04:46→10:02)
[2018-06-04] MEDS ORDERED: NS 1/2 1000 ML IV 1,000 ML ONE (04:47)
[2018-06-04 05:05] LABS: BASOPHILS % (AUTO) 0.6 % (0.2-1.0); EOSINOPHILS # (AUTO) 0.1 x10^3/uL (0.0-0.2); EOSINOPHILS % (AUTO) 2.8 % (0.9-2.9); HEMOGLOBIN 12.4 g/dL (13.5-18.0); LYMPHOCYTES # (AUTO) 0.9 X10^3/uL (1.3-2.9); LYMPHOCYTES % (AUTO) 27.5 % (21.0-51.0); MEAN CORPUSCULAR HEMOGLOBIN 30.8 pg (27.0-34.0); MEAN CORPUSCULAR HGB CONC 33.6 g/dL (33.0-35.0); MEAN CORPUSCULAR VOLUME 91.6 fL (80.0-100.0); MONOCYTES # (AUTO) 0.5 x10^3/uL (0.3-0.8); MONOCYTES % (AUTO) 15.3 % (0.0-13.0); NEUTROPHILS # (AUTO) 1.7 x10^3/uL (2.2-4.8); NEUTROPHILS % (AUTO) 53.8 % (42.0-75.0); PLATELET COUNT 127 X10^3/uL (150.0-450.0); RED BLOOD COUNT 4.04 X10^6/uL (4.7-6.0); RED CELL DISTRIBUTION WIDTH 18.7 % (11.6-16.5); WHITE BLOOD COUNT 3.3 X10^3/uL (3.6-10.0)
[2018-06-04] MEDS: FORTAZ or TAZICEF VIAL INJ IVP SCH (05:06)
[2018-06-04 05:19] LABS: ALANINE AMINOTRANSFERASE 36 Units/L (12-78); ALBUMIN 2.6 g/dL (3.4-5.0); ALKALINE PHOSPHATASE 57 Units/L (46-116); ASPARTATE AMINO TRANSFERASE 55 Units/L (15-37); BLOOD UREA NITROGEN 6 mg/dL (7-18); CALCIUM 8.6 mg/dL (8.5-10.1); CARBON DIOXIDE 23.7 mmol/L (21-32); CHLORIDE 103 mmol/L (98-107); COR CA(FOR HYPOALB) 9.7 mg/dL (8.5-10.1); SODIUM 138 mmol/L (136-145); TOTAL PROTEIN 6.1 g/dL (6.4-8.2); eGFR NON BLACK RACES > 60 (>60)
[2018-06-04] MEDS: KLOR-CON PO PRN (05:31)
--- NOTE | 2018-06-04 06:17 | RAD ---
HISTORY: Shortness of breath Study: Chest AP portable Comparison: 06/03/2018 Findings: The heart is within normal limits in size. The pedro are normal. The aorta is calcified. The lungs are hypo inflated but free of acute alveolar infiltrates. Interstitial lung changes are present, stable. The bony thorax is unremarkable. IMPRESSION: No significant change from the prior examination Reported By:
[2018-06-04] MEDS: PEPCID TAB 20 MG PO SCH (07:59)
[2018-06-04] MEDS: ZESTRIL TAB 10 MG PO SCH (07:59)
[2018-06-04] MEDS: PROTONIX TAB 40 MG PO SCH (07:59)
[2018-06-04] MEDS: LEVAQUIN PREMIX IV 500 MG 500 MG/100 ML BAG IV SCH (07:59)
[2018-06-04] MEDS: ECOTRIN TAB 325 MG PO SCH (07:59)
[2018-06-04] MEDS: CULTURELLE PRO-WELL PROBIOTIC CAP PO SCH (07:59)
[2018-06-04] MEDS: ROBITUSSIN DM PO SCH (07:59)
[2018-06-04] MEDS: SINGULAIR TAB 10 MG PO SCH (07:59)
[2018-06-04 09:30] VITALS: BP 128/65
--- NOTE | 2018-06-04 09:57 | PCM.PROG ---
Progress Note - Progress Note for Day of Date of Exam: 06/03/18 - Subjective Subjective: WAS ADMITTED FOR BRONCHOPNEUMONIA, FEVER, AND DIZZINESS. TODAY, HE IS ALERT AND ORIENTED, LYING IN BED ON MORNING ROUNDS. HE CONTINUES WITH COMPLAINTS OF SHORNTESS OF BREATH , PRODUCTIVE COUGH, AND GENERALIZED WEAKNESS. ON EXAMINATION, HEART IS REGULAR IN RATE AND RHYTHM. HE CONTINUES WITH SCATTERED WHEEZING. ABDOMEN IS ROUND, SOFT, AND NON-TENDER WITH NORMAL BOWEL SOUNDS NOTED IN ALL QUADRANTS. HIS VITALS THIS MORNING ARE 98.5-85-20-91%-143/68. LABS WERE OBTAINED. ABNORMAL LAB VALUES INCLUDE THE FOLLOWING: WBC 2.5, RBC 3.90, HGB 12.0, HCT 36.2, PLT COUNT 124, POTASSIUM 3.2, BUN 6, AST 55, TOTAL PROTEIN 6.1, ALBUMIN 2.6. BLOOD AND SPUTUM CULTURE PENDING. A CHEST XRAY WAS OBTAINED TODAY AND REVEALED: Stable interstitial lung changes. HE IS CURRENTLY RECEIVING IV ANTIBIOTICS, RESPIRATORY TX, AND SUPPLEMENTAL OXYGEN. TODAY, WE WILL CONTINUE WITH CURRENT PLAN OF CARE. OTHERWISE, WE WILL FOLLOW UP WITH AM LABS AND CONTINUE TO MONITOR. - Past Medical Family Social History Past Med/Fam/Surg Hx: No changes since H&P Allergies: Allergies No Known Drug Allergies Allergy (Verified 07/02/17 07:39) - Review of Systems ROS: No change since H&P - Vital Signs and I&O's Vital Signs: Temperature 98.3 F Pulse Rate [Left Brachial] 94 Pulse Rate [Right Brachial] 88 Pulse Rate 81 Respiratory Rate 20 Blood Pressure [Left Arm] 128/65 Blood Pressure [Standing] 122/68 Blood Pressure [Sitting] 142/69 Blood Pressure [Lying] 108/65 Blood Pressure 125/63 O2 Sat by Pulse Oximetry 95 Intake and Output: Intake & Output 06/01/18 06/02/18 06/03/18 06/04/18 11:59 11:59 11:59 11:59 Intake Total 1170 / 1170 3050 / 3050 3200 / 3200 2495 / 2495 Output Total 600 / 600 600 / 600 500 / 500 Balance 1170 / 1170 2450 / 2450 2600 / 2600 1994 - Physical Exam Oriented: Normal Eyes: Normal Ear: Normal Nose: Normal Throat: Normal Respiratory: Generalized, Wheezes Cardiovascular: Normal : Normal Auscultation: Bowel Sounds: Normal Tenderness: Normal Skin: Normal Musculoskeletal: Normal Psychiatric: Normal Mood Description: Calm Affect: Normal Speech Pattern: Clear, Appropriate - Laboratory and Diagnostics Result Diagrams: 06/04/18 04:27 06/04/18 08:20 Labs: 05/31/18 21:15 Sputum - Expectorated Sputum Sputum Culture - Final 05/31/18 21:15 Sputum - Expectorated Sputum - Final 05/31/18 18:55 Blood Blood Culture - Preliminary 05/31/18 18:50 Blood Blood Culture - Preliminary Laboratory WBC 3.3 X10^3/uL (3.6-10.0) L 06/04/18 04:27 RBC 4.04 X10^6/uL (4.7-6.0) L 06/04/18 04:27 Hgb 12.4 g/dL (13.5-18.0) L 06/04/18 04:27 Hct 37.0 % (42.0-54.0) L 06/04/18 04:27 MCV 91.6 fL (80.0-100.0) 06/04/18 04:27 MCH 30.8 pg (27.0-34.0) 06/04/18 04:27 MCHC 33.6 g/dL (33.0-35.0) 06/04/18 04:27 RDW 18.7 % (11.6-16.5) H 06/04/18 04:27 Plt Count 127 X10^3/uL (150.0-450.0) L 06/04/18 04:27 Plt Count Comment Adequate (ADEQUATE) 06/02/18 04:52 MPV 8.0 fL (7.4-11.0) 06/04/18 04:27 Neut % (Auto) 53.8 % (42.0-75.0) 06/04/18 04:27 Lymph % (Auto) 27.5 % (21.0-51.0) 06/04/18 04:27 [place] % (Auto) 15.3 % (0.0-13.0) H 06/04/18 04:27 Eos % (Auto) 2.8 % (0.9-2.9) 06/04/18 04:27 Baso % (Auto) 0.6 % (0.2-1.0) 06/04/18 04:27 Neut # (Auto) 1.7 x10^3/uL (2.2-4.8) L 06/04/18 04:27 Lymph # (Auto) 0.9 X10^3/uL (1.3-2.9) L 06/04/18 04:27 [place] # (Auto) 0.5 x10^3/uL (0.3-0.8) 06/04/18 04:27 Eos # (Auto) 0.1 x10^3/uL (0.0-0.2) 06/04/18 04:27 Baso # (Auto) 0.0 X10^3/uL (0.0-0.1) 06/04/18 04:27 Absolute Nucleated RBC 0.0 /100WBC 06/04/18 04:27 Total Counted 100 06/02/18 04:52 Neutrophils % (Manual) 67 % (39-76) 06/02/18 04:52 Band Neutrophils % 1 % (0-10) 06/02/18 04:52 Lymphocytes % (Manual) 20 % (13-43) 06/02/18 04:52 Monocytes % (Manual) 10 % (4-9) H 06/02/18 04:52 Eosinophils % (Manual) 2 % (0-6) 06/02/18 04:52 Plt Morphology Comment Normal (NORMAL) 06/02/18 04:52 RBC Morphology Normal (NORMAL) 06/02/18 04:52 Sodium 138 mmol/L (136-145) 06/04/18 04:27 Corrected Sodium TNP 06/04/18 04:27 Potassium 3.4 mmol/L (3.5-5.1) L 06/04/18 08:20 Chloride 103 mmol/L (98-107) 06/04/18 04:27 Carbon Dioxide 23.7 mmol/L (21-32) 06/04/18 04:27 BUN 6 mg/dL (7-18) L 06/04/18 04:27 Creatinine 0.90 mg/dL (0.70-1.30) 06/04/18 04:27 Est GFR (MDRD) Af Amer > 60 (>60) 06/04/18 04:27 Est GFR (MDRD) Non-Af > 60 (>60) 06/04/18 04:27 Glucose 84 mg/dL (65-99) 06/04/18 04:27 Calcium 8.6 mg/dL (8.5-10.1) 06/04/18 04:27 Corrected Calcium 9.7 mg/dL (8.5-10.1) 06/04/18 04:27 Magnesium 2.0 mg/dL (1.7-2.9) 06/02/18 04:52 Total Bilirubin 0.40 mg/dL (0.2-1.0) 06/04/18 04:27 AST 55 Units/L (15-37) H 06/04/18 04:27 ALT 36 Units/L (12-78) 06/04/18 04:27 Alkaline Phosphatase 57 Units/L (46-116) 06/04/18 04:27 Total Protein 6.1 g/dL (6.4-8.2) L 06/04/18 04:27 Albumin 2.6 g/dL (3.4-5.0) L 06/04/18 04:27 Globulin 3.5 g/dL (2.5-4.5) 06/04/18 04:27 Albumin/Globulin Ratio 0.7 Ratio (1.1-2.1) L 06/04/18 04:27 - Plan (1) Bronchopneumonia Status: Acute Plan: IV LEVAQUIN, IV FORTAZ, RESPIRATORY TX, SUPPLEMENTAL OXYGEN, CONTINUE TO MONITOR (2) Generalized weakness Status: Acute Plan: OBTAIN BRAIN MRI, CONTINUE TO MONITOR (3) Dizziness Status: Acute (4) Frequent falls Status: Acute (5) Hypertension Status: Chronic Qualifiers: Hypertension type: essential hypertension Qualified Code(s): I10 - Essential (primary) hypertension Plan: CONTINUE LISINOPRIL, START AMLODIPINE 5MG PO HS
== END 2018-06-04 11:20 | disposition home or self-care (01) | DRG 195 ==
LOC: MED/SURG 17:01
PROVIDERS: ADMIT Internal Medicine; ATTEND Internal Medicine
DX: J33.0 Polyp of nasal cavity; R42 Dizziness and giddiness; R11.2 Nausea with vomiting, unspecified; R29.6 Repeated falls; Z91.81 History of falling; R06.02 Shortness of breath; J18.0 Bronchopneumonia, unspecified organism; I10 Essential (primary) hypertension; R26.89 Other abnormalities of gait and mobility; I49.9 Cardiac arrhythmia, unspecified; R53.1 Weakness
CPT/HCPCS: 36415; 70450; 70551; 71010; 71020; 71045; 71046; 71260; 80053; 83735; 84132; 85025; 87040; 87070; 87205; 94640; 94669; 94760; 97110; 97112; 97116; 97162; 97166; 97530; 97535; A4222; J0713; J1956; J3475; J7050; J7620; S0119; S0181

== ENCOUNTER 2021-05-31 23:21 | Observation (INO) ==
--- NOTE | 2021-05-31 23:50 | DR.ABDMALE ---
HPI Time seen Time Seen by Provider: 05/31/21 23:43 PCP Primary Care Physician: ABHINAV Complaint Chief Complaint Doctors Comments: RECTAL BLEEDING FOR [address]EN IN [address] OSUNA OFFICE YESTERDAY FOR SIGN OF DIVERTICULITIS AND WAS STARTED ON CIPRO 500MG BID AND DEVELOPED THE BLEEDING TODAY. Chief Complaint:: PT AMBULATORY IN ED WITH C/O 7/10 LOWER ABD PAIN. PT STATES "I FILLED THE TOILET WITH BLOOD". PT STATES HE HAS AN ABD INFECTION "JUST IN MY GUT" THAT HE HAS BEEN TAKING ABX FOR. PT STATES THIS HAS BEEN GOING ON SINCE Thursday05/27/21. COVID-19 Coronavirus risk:travel/contact w/high risk person: No Has patient experienced Coronavirus symptoms: No Mode of arrival Mode of Arrival: Ambulatory Timing Onset of Chief Complaint: 05/27/21 PMH PMH Past Medical History: Yes Past Medical History: Dyslipidemia and Hypertension Past Medical History Comment: BPH, DIVERTICULITIS Past Surgical History: Yes Surgical History: Angioplasty/Stents, Appendectomy, CABG/Valve Surgery and Cholecystectomy Past Surgical History Comment: CARDIAC STENTS x2 Family History History of Family Medical Conditions: Yes Family Medical History: [place], Coronary Artery Disease and Hypertension Social History Alcohol Use: DAILY Do you use any recreational Drugs:: No Lives With: Spouse Lives Where: Home Travel Risk Coronavirus risk:travel/contact w/high risk person: No Has patient experienced Coronavirus symptoms: No Infectious screening Have you traveled outside the country in the last 6 months?: No Isolation: Standard PE Vital Signs Vital Signs: Temp Pulse Resp BP BP BP BP 05/31/21 23:27 97.9 F 104 H 18 100/51 02/02/21 00:35 127/57 02/02/21 00:15 127/57 06/12/17 11:58 06/12/17 11:57 108/65 142/69 BP Pulse Ox 05/31/21 23:27 96 02/02/21 00:35 02/02/21 00:15 06/12/17 11:58 122/68 06/12/17 11:57 MDM Additional Information Obtained From Additional Findings:: RECTAL BLEED,ABDOMINAL PAIN,DIVERTICULITIS,DIVERTICULOSIS Differential Diagnosis Other differential diagnosis: RECTAL BLEED,DIVERTICULITIS,ABDOMINAL PAIN COURSE Treatment Treatment: PATIENT HAD SEVERAL EPISODES OF BRB FROM RECTUM IN ER,VITAL REMAINED STABLE. CTSCAN OF ABD/PELVIS SHOWED MODERATE COLONIC DIVERTICULOSIS, NO BOWEL OBSTRUCTION. SPLENOMEGALY. SMALL R HEPATIC CYST. SPOKE TO DR GROSS(THE SURGEON) AT 0320 AND STATE TO REFER THE PATIENT TO OBSERVATION TO HIM. START IV FLUIDS AND LET HIM KNOW WHEH HE ARRIVES ON THE FLOOR. SPOKETO DR BARNARD THE NATURAL [employer]INE[employer] HOSPITALIST AND HE STATED THAT DR GROSS COULD ADMIT THE PATIENT TOO HIS OWN SERVICE IF HE WANTED TO AND NOT HAVE THE HOSPITALIST INVOLVED. THE PATIENT WAS INFORMED OF THE INTENT TO REFER TO HOSPITAL FOR FURTHER EVALUATION AND TREATMENT BY THE NATURAL GAS ENGINEER SURGEON. ROR Labs Reviewed Laboratory Results Reviewed?: Yes Result Diagrams: 06/01/21 03:05 06/01/21 00:00 Laboratory: WBC 7.6 X10^3/uL (3.6-10.0) 06/01/21 00:00 RBC 4.57 X10^6/uL (4.7-6.0) L 06/01/21 00:00 Hgb 10.1 g/dL (13.5-18.0) L 06/01/21 03:05 Hct 32.9 % (42.0-54.0) L 06/01/21 03:05 MCV 73.6 fL (80.0-100.0) L 06/01/21 00:00 MCH 23.0 pg (27.0-34.0) L 06/01/21 00:00 MCHC 31.3 g/dL (33.0-35.0) L 06/01/21 00:00 RDW 22.4 % (11.6-16.5) H 06/01/21 00:00 Plt Count 232 X10^3/uL (150.0-450.0) 06/01/21 00:00 Plt Count Comment Adequate (ADEQUATE) 06/01/21 00:00 MPV 8.1 fL (7.4-11.0) 06/01/21 00:00 Neut % (Auto) 72.0 % (42.0-75.0) 06/01/21 00:00 Lymph % (Auto) 13.9 % (21.0-51.0) L 06/01/21 00:00 [place] % (Auto) 7.3 % (0.0-13.0) 06/01/21 00:00 Eos % (Auto) 3.3 % (0.9-2.9) H 06/01/21 00:00 Baso % (Auto) 3.5 % (0.2-1.0) H 06/01/21 00:00 Neut # (Auto) 5.5 x10^3/uL (2.2-4.8) H 06/01/21 00:00 Lymph # (Auto) 1.1 X10^3/uL (1.3-2.9) L 06/01/21 00:00 [place] # (Auto) 0.6 x10^3/uL (0.3-0.8) 06/01/21 00:00 Eos # (Auto) 0.3 x10^3/uL (0.0-0.2) H 06/01/21 00:00 Baso # (Auto) 0.3 X10^3/uL (0.0-0.1) H 06/01/21 00:00 Absolute Nucleated RBC 0.0 /100WBC 06/01/21 00:00 Plt Morphology Comment Normal (NORMAL) 06/01/21 00:00 RBC Morphology Abnormal (NORMAL) 06/01/21 00:00 Hypochromasia Slight A 06/01/21 00:00 Anisocytosis 1+ A 06/01/21 00:00 Microcytosis Slight A 06/01/21 00:00 Ovalocytes Present 06/01/21 00:00 PT 14.3 SECONDS (11.8-14.3) 06/01/21 00:00 INR Target Range - 06/01/21 00:00 INR 1.14 (0.8-1.3) 06/01/21 00:00 APTT 29.3 SECONDS (22.9-36.5) 06/01/21 00:00 PTT Comment - 06/01/21 00:00 Sodium 136 mmol/L (136-145) 06/01/21 00:00 Corrected Sodium TNP 06/01/21 00:00 Potassium 4.4 mmol/L (3.5-5.1) 06/01/21 00:00 Chloride 103 mmol/L (98-107) 06/01/21 00:00 Carbon Dioxide 21.8 mmol/L (21-32) 06/01/21 00:00 BUN 18 mg/dL (7-18) 06/01/21 00:00 Creatinine 1.66 mg/dL (0.70-1.30) H 06/01/21 00:00 Est GFR (MDRD) Af Amer 52 (>60) L 06/01/21 00:00 Est GFR (MDRD) Non-Af 43 (>60) L 06/01/21 00:00 Glucose 82 mg/dL (65-99) 06/01/21 00:00 Calcium 8.4 mg/dL (8.5-10.1) L 06/01/21 00:00 Corrected Calcium 9.1 mg/dL (8.5-10.1) 06/01/21 00:00 Total Bilirubin 0.30 mg/dL (0.2-1.0) 06/01/21 00:00 AST 11 Units/L (15-37) L 06/01/21 00:00 ALT 14 Units/L (12-78) 06/01/21 00:00 Alkaline Phosphatase 60 Units/L (46-116) 06/01/21 00:00 Total Protein 6.9 g/dL (6.4-8.2) 06/01/21 00:00 Albumin 3.1 g/dL (3.4-5.0) L 06/01/21 00:00 Globulin 3.8 g/dL (2.5-4.5) 06/01/21 00:00 Albumin/Globulin Ratio 0.8 Ratio (1.1-2.1) L 06/01/21 00:00 Blood Type A POSITIVE 06/01/21 03:05 Antibody Screen Negative 06/01/21 03:05 Opioid Opioid Risk Tool Age (Mikhail box if 16-45): No History of Preadolescent Sexual Abuse: No Total: 0 Total Score Risk Category: Low Risk Copyright: Yonatan ROSAS predicting aberrant behaviors Diagnosis Discharge Problem: Acute lower gastrointestinal bleeding Instructions Forms: Precautions for COVID19 [facility] Social Distancing
[2021-05-31] MEDS ORDERED: PROTONIX INJ 40 MG VIAL IVP ONE (23:52)
[2021-06-01] MEDS ORDERED: PROTONIX INJ 40 MG VIAL ONE (00:10)
[2021-06-01 00:12] LABS: BASOPHILS # (AUTO) 0.3 X10^3/uL (0.0-0.1); BASOPHILS % (AUTO) 3.5 % (0.2-1.0); EOSINOPHILS # (AUTO) 0.3 x10^3/uL (0.0-0.2); EOSINOPHILS % (AUTO) 3.3 % (0.9-2.9); HEMATOCRIT 33.6 % (42.0-54.0); HEMOGLOBIN 10.5 g/dL (13.5-18.0); LYMPHOCYTES # (AUTO) 1.1 X10^3/uL (1.3-2.9); LYMPHOCYTES % (AUTO) 13.9 % (21.0-51.0); MEAN CORPUSCULAR HGB CONC 31.3 g/dL (33.0-35.0); MEAN CORPUSCULAR VOLUME 73.6 fL (80.0-100.0); MEAN PLATELET VOLUME 8.1 fL (7.4-11.0); MONOCYTES # (AUTO) 0.6 x10^3/uL (0.3-0.8); MONOCYTES % (AUTO) 7.3 % (0.0-13.0); NEUTROPHILS # (AUTO) 5.5 x10^3/uL (2.2-4.8); RED BLOOD COUNT 4.57 X10^6/uL (4.7-6.0); RED CELL DISTRIBUTION WIDTH 22.4 % (11.6-16.5); WHITE BLOOD COUNT 7.6 X10^3/uL (3.6-10.0)
[2021-06-01 00:34] LABS: ANISOCYTOSIS 1+; HYPOCHROMASIA SLIGHT; MICROCYTOSIS SLIGHT; OVALOCYTES PRESENT; PLATELET MORPHOLOGY COMMENT NORMAL (NORMAL)
[2021-06-01 00:40] LABS: ALANINE AMINOTRANSFERASE 14 Units/L (12-78); ALBUMIN 3.1 g/dL (3.4-5.0); ALKALINE PHOSPHATASE 60 Units/L (46-116); ASPARTATE AMINO TRANSFERASE 11 Units/L (15-37); BLOOD UREA NITROGEN 18 mg/dL (7-18); CALCIUM 8.4 mg/dL (8.5-10.1); CARBON DIOXIDE 21.8 mmol/L (21-32); CHLORIDE 103 mmol/L (98-107); COR CA(FOR HYPOALB) 9.1 mg/dL (8.5-10.1); CREATININE 1.66 mg/dL (0.70-1.30); SODIUM 136 mmol/L (136-145); TOTAL PROTEIN 6.9 g/dL (6.4-8.2); eGFR NON BLACK RACES 43 (>60)
--- NOTE | 2021-06-01 02:52 | CT ---
PROCEDURE: CT Abdomen and Pelvis with Contrast .HISTORY: Abdomen pain and rectal bleeding.TECHNIQUE: Axial images were performed through the abdomen and pelvis with the administration of IV contrast with multiplanar reformations . Oral contrast was administered. Dose reduction techniques including Automated Exposure Control (AEC) and adjustment of mA and kV were utilized .COMPARISON: None .TECHNICAL QUALITY: Satisfactory .FINDINGS:Mild linear scar versus discoid atelectasis at the lung bases.Small right hepatic cyst. Splenomegaly at 14.7 cm. Adrenals and pancreas show no abnormality.Small left renal cortical cysts. No renal masses or obstructive uropathy.Previous cholecystectomy.No ascites or pneumoperitoneum.Moderate atherosclerosis aorta.No lymphadenopathy.No bowel obstruction or inflammation. Moderate colonic diverticulosis. Appendix is not visualized.Pelvis shows no masses or free fluid in normal urinary bladder.No acute bony abnormality.IMPRESSION:1. Moderate colonic diverticulosis. No bowel inflammation or obstruction.2. Splenomegaly.3. Small right hepatic cysts cyst.4. No other significant abnormality identified.Electronically signed by: Pepe Hilliard (Jun 01, 2021 02:51:33)
[2021-06-01 03:16] LABS: HEMATOCRIT 32.9 % (42.0-54.0); HEMOGLOBIN 10.1 g/dL (13.5-18.0)
[2021-06-01] MEDS ORDERED: NS 1,000 ML IV 1,000 ML ONE (04:39)
[2021-06-01] MEDS: NS 1,000 ML IV 1,000 ML IV SCH ×3 (05:10→21:26)
[2021-06-01 05:41] VITALS: BMI 26.6
[2021-06-01] MEDS ORDERED: ZOFRAN TAB 4 MG PO PRN ×2 (06:19→12:42)
[2021-06-01] MEDS ORDERED: DULCOLAX TAB EC 5 MG PO ONE ×2 (06:24→09:07)
[2021-06-01] MEDS ORDERED: CITROMA PO ONE (06:24)
[2021-06-01 07:07] LABS: BASOPHILS % (AUTO) 0.8 % (0.2-1.0); EOSINOPHILS # (AUTO) 0.3 x10^3/uL (0.0-0.2); EOSINOPHILS % (AUTO) 5.3 % (0.9-2.9); HEMATOCRIT 30.8 % (42.0-54.0); HEMOGLOBIN 9.6 g/dL (13.5-18.0); LYMPHOCYTES # (AUTO) 1.3 X10^3/uL (1.3-2.9); LYMPHOCYTES % (AUTO) 25.9 % (21.0-51.0); MEAN CORPUSCULAR HEMOGLOBIN 23.2 pg (27.0-34.0); MEAN CORPUSCULAR HGB CONC 31.4 g/dL (33.0-35.0); MEAN CORPUSCULAR VOLUME 73.9 fL (80.0-100.0); MEAN PLATELET VOLUME 8.3 fL (7.4-11.0); MONOCYTES # (AUTO) 0.5 x10^3/uL (0.3-0.8); MONOCYTES % (AUTO) 9.9 % (0.0-13.0); NEUTROPHILS % (AUTO) 58.1 % (42.0-75.0); RED BLOOD COUNT 4.16 X10^6/uL (4.7-6.0); RED CELL DISTRIBUTION WIDTH 22.2 % (11.6-16.5); WHITE BLOOD COUNT 5.1 X10^3/uL (3.6-10.0)
[2021-06-01 07:37] LABS: HYPOCHROMASIA 1+; PLATELET MORPHOLOGY COMMENT NORMAL (NORMAL)
[2021-06-01 07:38] LABS: ANISOCYTOSIS 2+; MICROCYTOSIS SLIGHT
[2021-06-01] MEDS ORDERED: ZESTRIL TAB 40 MG PO SCH (09:00)
[2021-06-01] MEDS ORDERED: CITROMA ONE (09:07)
[2021-06-01] MEDS: PROSCAR PO SCH (09:13)
[2021-06-01] MEDS: NEURONTIN CAP 300 MG PO SCH ×2 (09:13→21:17)
[2021-06-01] MEDS: PROTONIX INJ 40 MG VIAL IVP SCH (09:13)
[2021-06-01] MEDS: ZESTRIL TAB 40 MG PO SCH (09:13)
[2021-06-01] MEDS: DILAUDID INJ IVP PRN ×4 (09:30→22:32)
--- NOTE | 2021-06-01 14:30 | DR.H&P ---
H&P History & Physical for Day of: H&P Date: 06/01/21 Chief Complaint Chief Complaint: 76 year old male who presented with bright red blood per rectum described as significant .Patient was stable. Patient is on Plavix. Past history of coronary stents. Most recent one was two years ago. No history am I. All were given for shortness of breath and subsequent findings of coronary artery stenosis . Allergies Allergies Allergy/AdvReac Type Severity Reaction Status Date / Time No Known Drug Allergies Allergy Verified 07/02/17 07:39 History of Present Illness History of Present Illness: As above. CT scan shows sigmoid diverticulosis. Had colonoscopy 3 years ago and had polyp removed. Started on PO Cipro by DR. Jose yesterday for " diverticulitis " Past Medical History Past Medical History: Coronary Artery Disease (Hx of multiple coronary stents placed in the past. On Plavix ), Dyslipidemia and Hypertension Past Surgical History Surgical History: Angioplasty/Stents, Appendectomy and Cholecystectomy Family History Family Medical History: [place] Social History Does patient currently use any type of tobacco product: No Have you used tobacco products in the last 12 months: No Type of Tobacco Use: None Does any household member use tobacco: No Alcohol Use: None Drug Use: None Medications Home Medications: No Known Drug Allergies Allergy (Verified 07/02/17 07:39) CONTINUE taking the following medications ciprofloxacin HCl 500 mg PO BID 05/31/21 [History] clopidogrel 75 mg PO DAILY 05/31/21 [History] donepezil 10 mg PO DAILY 05/31/21 [History] ondansetron HCl 8 mg PO PRN PRN 05/31/21 [History] Labs Result Diagrams: 06/01/21 06:39 06/01/21 00:00 Labs: Laboratory WBC 5.1 X10^3/uL (3.6-10.0) 06/01/21 06:39 RBC 4.16 X10^6/uL (4.7-6.0) L 06/01/21 06:39 Hgb 9.6 g/dL (13.5-18.0) L 06/01/21 06:39 Hct 30.8 % (42.0-54.0) L 06/01/21 06:39 MCV 73.9 fL (80.0-100.0) L 06/01/21 06:39 MCH 23.2 pg (27.0-34.0) L 06/01/21 06:39 MCHC 31.4 g/dL (33.0-35.0) L 06/01/21 06:39 RDW 22.2 % (11.6-16.5) H 06/01/21 06:39 Plt Count 185 X10^3/uL (150.0-450.0) 06/01/21 06:39 Plt Count Comment Adequate (ADEQUATE) 06/01/21 06:39 MPV 8.3 fL (7.4-11.0) 06/01/21 06:39 Neut % (Auto) 58.1 % (42.0-75.0) 06/01/21 06:39 Lymph % (Auto) 25.9 % (21.0-51.0) 06/01/21 06:39 [place] % (Auto) 9.9 % (0.0-13.0) 06/01/21 06:39 Eos % (Auto) 5.3 % (0.9-2.9) H 06/01/21 06:39 Baso % (Auto) 0.8 % (0.2-1.0) 06/01/21 06:39 Neut # (Auto) 3.0 x10^3/uL (2.2-4.8) 06/01/21 06:39 Lymph # (Auto) 1.3 X10^3/uL (1.3-2.9) 06/01/21 06:39 [place] # (Auto) 0.5 x10^3/uL (0.3-0.8) 06/01/21 06:39 Eos # (Auto) 0.3 x10^3/uL (0.0-0.2) H 06/01/21 06:39 Baso # (Auto) 0.0 X10^3/uL (0.0-0.1) 06/01/21 06:39 Absolute Nucleated RBC 0.1 /100WBC 06/01/21 06:39 Plt Morphology Comment Normal (NORMAL) 06/01/21 06:39 RBC Morphology Abnormal (NORMAL) 06/01/21 06:39 Hypochromasia 1+ A 06/01/21 06:39 Anisocytosis 2+ A 06/01/21 06:39 Microcytosis Slight A 06/01/21 06:39 Ovalocytes Present 06/01/21 00:00 PT 14.3 SECONDS (11.8-14.3) 06/01/21 00:00 INR Target Range - 06/01/21 00:00 INR 1.14 (0.8-1.3) 06/01/21 00:00 APTT 29.3 SECONDS (22.9-36.5) 06/01/21 00:00 PTT Comment - 06/01/21 00:00 Sodium 136 mmol/L (136-145) 06/01/21 00:00 Corrected Sodium TNP 06/01/21 00:00 Potassium 4.4 mmol/L (3.5-5.1) 06/01/21 00:00 Chloride 103 mmol/L (98-107) 06/01/21 00:00 Carbon Dioxide 21.8 mmol/L (21-32) 06/01/21 00:00 BUN 18 mg/dL (7-18) 06/01/21 00:00 Creatinine 1.66 mg/dL (0.70-1.30) H 06/01/21 00:00 Est GFR (MDRD) Af Amer 52 (>60) L 06/01/21 00:00 Est GFR (MDRD) Non-Af 43 (>60) L 06/01/21 00:00 Glucose 82 mg/dL (65-99) 06/01/21 00:00 Calcium 8.4 mg/dL (8.5-10.1) L 06/01/21 00:00 Corrected Calcium 9.1 mg/dL (8.5-10.1) 06/01/21 00:00 Total Bilirubin 0.30 mg/dL (0.2-1.0) 06/01/21 00:00 AST 11 Units/L (15-37) L 06/01/21 00:00 ALT 14 Units/L (12-78) 06/01/21 00:00 Alkaline Phosphatase 60 Units/L (46-116) 06/01/21 00:00 Total Protein 6.9 g/dL (6.4-8.2) 06/01/21 00:00 Albumin 3.1 g/dL (3.4-5.0) L 06/01/21 00:00 Globulin 3.8 g/dL (2.5-4.5) 06/01/21 00:00 Albumin/Globulin Ratio 0.8 Ratio (1.1-2.1) L 06/01/21 00:00 Blood Type A POSITIVE 06/01/21 03:05 Antibody Screen Negative 06/01/21 03:05 Review of Systems Constitutional: See HPI (c/o abdominal pain) ENT: No Symptoms Reported Respiratory: No Symptoms Reported Cardiovascular: No Symptoms Reported Gastrointestinal: See HPI Genitourinary: No Symptoms Reported Musculoskeletal: No Symptoms Reported Skin: No Symptoms Reported Neurological: No Symptoms Reported Physical Exam Vital Signs: Temperature 98.3 F Pulse Rate [Left Brachial] 68 Pulse Rate 104 Respiratory Rate 20 Blood Pressure [Left Arm] 97/54 Blood Pressure [Standing] 122/68 Blood Pressure [Sitting] 142/69 Blood Pressure [Lying] 108/65 Blood Pressure 100/51 O2 Sat by Pulse Oximetry 97 Oriented: Normal, Time, Person and Place Eyes: Normal Ear: Normal Nose: Normal Throat: Normal Respiratory: Clear Throughout Cardiovascular: Normal : Normal Auscultation: Bowel Sounds: Normal Palpation: Normal Tenderness: Other (mild diffuse abdominal pain. ) Skin: Normal Musculoskeletal: Normal Psychiatric: Normal Mood Description: Calm Affect: Normal Speech Pattern: Clear Assessment/Plan (1) Acute lower gastrointestinal bleeding: Status: Acute Plan: Will perform bowel prep. Monitor blood count. Plan colonoscopy on Thursday. =/- start IV antibiotics.
[2021-06-01] MEDS: ZOFRAN INJ 4 MG VIAL IVP PRN (16:45)
[2021-06-01] MEDS: INVanz INJ 1 GRAM VIAL 1 G in NS 100 ML IV 100 ML IV SCH (17:48)
[2021-06-01 18:01] LABS: BASOPHILS % (AUTO) 0.6 % (0.2-1.0); EOSINOPHILS # (AUTO) 0.2 x10^3/uL (0.0-0.2); EOSINOPHILS % (AUTO) 2.5 % (0.9-2.9); HEMATOCRIT 34.4 % (42.0-54.0); HEMOGLOBIN 10.6 g/dL (13.5-18.0); LYMPHOCYTES # (AUTO) 1.1 X10^3/uL (1.3-2.9); MEAN CORPUSCULAR HEMOGLOBIN 23.1 pg (27.0-34.0); MEAN CORPUSCULAR HGB CONC 30.8 g/dL (33.0-35.0); MEAN CORPUSCULAR VOLUME 74.9 fL (80.0-100.0); MEAN PLATELET VOLUME 8.2 fL (7.4-11.0); MONOCYTES # (AUTO) 0.4 x10^3/uL (0.3-0.8); MONOCYTES % (AUTO) 6.3 % (0.0-13.0); NEUTROPHILS # (AUTO) 5.2 x10^3/uL (2.2-4.8); NEUTROPHILS % (AUTO) 74.6 % (42.0-75.0); RED BLOOD COUNT 4.59 X10^6/uL (4.7-6.0)
[2021-06-01 18:16] LABS: PLATELET MORPHOLOGY COMMENT NORMAL (NORMAL)
[2021-06-01 18:17] LABS: ANISOCYTOSIS 2+; HYPOCHROMASIA 1+; MICROCYTOSIS SLIGHT
[2021-06-01] MEDS: ARICEPT TAB 10 MG PO SCH (21:17)
[2021-06-01] MEDS: SINGULAIR TAB 10 MG PO SCH (21:17)
[2021-06-01] MEDS: CRESTOR TAB 10 MG PO SCH (21:17)
[2021-06-02] MEDS: NS 1,000 ML IV 1,000 ML IV SCH ×4 (04:00→20:24)
[2021-06-02 05:00] LABS: BASOPHILS % (AUTO) 0.8 % (0.2-1.0); EOSINOPHILS # (AUTO) 0.3 x10^3/uL (0.0-0.2); EOSINOPHILS % (AUTO) 5.3 % (0.9-2.9); HEMATOCRIT 28.9 % (42.0-54.0); HEMOGLOBIN 8.9 g/dL (13.5-18.0); LYMPHOCYTES # (AUTO) 1.3 X10^3/uL (1.3-2.9); LYMPHOCYTES % (AUTO) 22.7 % (21.0-51.0); MEAN CORPUSCULAR HEMOGLOBIN 23.1 pg (27.0-34.0); MEAN CORPUSCULAR HGB CONC 30.8 g/dL (33.0-35.0); MONOCYTES # (AUTO) 0.6 x10^3/uL (0.3-0.8); MONOCYTES % (AUTO) 10.4 % (0.0-13.0); NEUTROPHILS # (AUTO) 3.5 x10^3/uL (2.2-4.8); NEUTROPHILS % (AUTO) 60.8 % (42.0-75.0); RED BLOOD COUNT 3.86 X10^6/uL (4.7-6.0); RED CELL DISTRIBUTION WIDTH 21.7 % (11.6-16.5); WHITE BLOOD COUNT 5.8 X10^3/uL (3.6-10.0)
[2021-06-02] MEDS: DILAUDID INJ IVP PRN (05:26)
[2021-06-02 06:10] LABS: PLATELET MORPHOLOGY COMMENT NORMAL (NORMAL)
[2021-06-02 06:11] LABS: ANISOCYTOSIS 1+; HYPOCHROMASIA SLIGHT; MICROCYTOSIS SLIGHT; OVALOCYTES PRESENT; TEAR DROP CELLS PRESENT
[2021-06-02] MEDS: ZOFRAN INJ 4 MG VIAL IVP PRN ×3 (06:21→20:32)
[2021-06-02] MEDS ORDERED: ATIVAN INJ 2 MG VIAL ONE (08:02)
[2021-06-02] MEDS ORDERED: ATIVAN INJ 2 MG VIAL IVP PRN ×2 (08:02→16:24)
[2021-06-02] MEDS: INVanz INJ 1 GRAM VIAL 1 G in NS 100 ML IV 100 ML IV SCH (10:01)
[2021-06-02] MEDS: NEURONTIN CAP 300 MG PO SCH ×2 (10:01→20:23)
[2021-06-02] MEDS: ZESTRIL TAB 40 MG PO SCH (10:02)
[2021-06-02] MEDS: PROTONIX INJ 40 MG VIAL IVP SCH (10:02)
[2021-06-02] MEDS: PROSCAR PO SCH (10:02)
[2021-06-02] MEDS: SINGULAIR TAB 10 MG PO SCH (20:23)
[2021-06-02] MEDS: CRESTOR TAB 10 MG PO SCH (20:23)
[2021-06-02] MEDS: ARICEPT TAB 10 MG PO SCH (20:23)
[2021-06-03] MEDS: DILAUDID INJ IVP PRN ×3 (02:14→20:09)
[2021-06-03] MEDS: NS 1,000 ML IV 1,000 ML IV SCH ×2 (02:32→04:35)
[2021-06-03 04:46] LABS: BASOPHILS % (AUTO) 0.4 % (0.2-1.0); EOSINOPHILS # (AUTO) 0.1 x10^3/uL (0.0-0.2); EOSINOPHILS % (AUTO) 1.8 % (0.9-2.9); HEMATOCRIT 25.4 % (42.0-54.0); HEMOGLOBIN 8.1 g/dL (13.5-18.0); LYMPHOCYTES # (AUTO) 1.1 X10^3/uL (1.3-2.9); LYMPHOCYTES % (AUTO) 13.8 % (21.0-51.0); MEAN CORPUSCULAR HEMOGLOBIN 23.6 pg (27.0-34.0); MEAN CORPUSCULAR HGB CONC 31.8 g/dL (33.0-35.0); MEAN PLATELET VOLUME 7.9 fL (7.4-11.0); MONOCYTES # (AUTO) 0.6 x10^3/uL (0.3-0.8); MONOCYTES % (AUTO) 8.3 % (0.0-13.0); NEUTROPHILS # (AUTO) 5.9 x10^3/uL (2.2-4.8); NEUTROPHILS % (AUTO) 75.7 % (42.0-75.0); RED BLOOD COUNT 3.43 X10^6/uL (4.7-6.0); RED CELL DISTRIBUTION WIDTH 22.5 % (11.6-16.5); WHITE BLOOD COUNT 7.8 X10^3/uL (3.6-10.0)
[2021-06-03 05:01] LABS: ALANINE AMINOTRANSFERASE 8 Units/L (12-78); ALBUMIN 2.4 g/dL (3.4-5.0); ALKALINE PHOSPHATASE 49 Units/L (46-116); ASPARTATE AMINO TRANSFERASE 11 Units/L (15-37); BLOOD UREA NITROGEN 9 mg/dL (7-18); CALCIUM 7.5 mg/dL (8.5-10.1); CARBON DIOXIDE 21.4 mmol/L (21-32); CHLORIDE 108 mmol/L (98-107); COR CA(FOR HYPOALB) 8.8 mg/dL (8.5-10.1); CREATININE 1.13 mg/dL (0.70-1.30); SODIUM 137 mmol/L (136-145); TOTAL PROTEIN 5.4 g/dL (6.4-8.2); eGFR NON BLACK RACES > 60 (>60)
[2021-06-03 05:10] LABS: ANISOCYTOSIS 1+; HYPOCHROMASIA SLIGHT; MICROCYTOSIS SLIGHT; OVALOCYTES PRESENT; PLATELET MORPHOLOGY COMMENT NORMAL (NORMAL)
[2021-06-03] MEDS ORDERED: DIPRIVAN VIAL 20 ML ONE (09:06)
[2021-06-03] MEDS ORDERED: D5 LR 1,000 ML 1,000 ML IV ONE (09:14)
[2021-06-03] MEDS ORDERED: KETAMINE HCL ONE (09:17)
[2021-06-03] MEDS ORDERED: ZOFRAN INJ 4 MG VIAL ONE (09:17)
[2021-06-03] MEDS ORDERED: XYLOCAINE 2 % (PLAIN) ONE (09:17)
[2021-06-03] MEDS ORDERED: PEPCID 20 MG VIAL ONE (09:17)
[2021-06-03] MEDS ORDERED: EPHEDRINE SULFATE INJ ONE (09:36)
[2021-06-03] MEDS: NEURONTIN CAP 300 MG PO SCH ×2 (09:43→20:09)
[2021-06-03] MEDS: PROSCAR PO SCH (09:43)
[2021-06-03] MEDS: ZESTRIL TAB 40 MG PO SCH (09:44)
[2021-06-03] MEDS: PROTONIX INJ 40 MG VIAL IVP SCH (09:55)
[2021-06-03] MEDS: INVanz INJ 1 GRAM VIAL 1 G in NS 100 ML IV 100 ML IV SCH (09:55)
--- NOTE | 2021-06-03 10:36 | OR.IMMED ---
IMMEDIATE POST-OP NOTE Immediate Post-Op Note Pre-Op Diagnosis: lower GI bleed Post-Op Diagnosis: No active bleeding, significant sigmoid and left colon diverticulosis Procedure: flexible colonoscopy Description of Procedure: see operative summary Surgeon/Chief Compliance Officer: Fito Findings: as above Specimens Removed: none Estimated Blood Loss: none Drains: NONE Complications: none Progress Notes: To 2nd floor, regular diet,probably d/c home later today Condition: Stable Final Diagnosis: Lower GI bleed.
[2021-06-03] MEDS: ARICEPT TAB 10 MG PO SCH (20:08)
[2021-06-03] MEDS: CRESTOR TAB 10 MG PO SCH (20:09)
[2021-06-03] MEDS: ZOFRAN INJ 4 MG VIAL IVP PRN (20:09)
[2021-06-03] MEDS: SINGULAIR TAB 10 MG PO SCH (20:09)
--- NOTE | 2021-06-03 21:36 | NOTE.SOAP ---
Soap Note Note for Day of Date of Exam: 06/03/21 Subjective Data Subjective Data: S/p colonoscopy earlier today. Diverticulosis of both the sigmoid colon and the left colon with no active bleeding.. Advanced diet. Hgb= 8.1 this AM. Will repeat in AM. Objective Data Temperature: 97.6 F Pulse Rate: 77 Respiratory Rate: 22 Blood Pressure: 162/69 O2 Sat by Pulse Oximetry: 98 Assessment Assessment: Lower GI bleed. Plan Plan: Hgb in AM and if not declining further will d/c home. Will continue to hold Plavix.
--- NOTE | 2021-06-03 21:37 | NOTE.SOAP ---
Soap Note Note for Day of Date of Exam: 06/02/21 Subjective Data Subjective Data: Doing well. Still c/om some tenderness of abdomen, Tmax = 101.6 now afebrie Objective Data Temperature: 98.7 F Pulse Rate: 80 Respiratory Rate: 20 Blood Pressure: 108/54 O2 Sat by Pulse Oximetry: 99 Objective Data: Mild tenderness of abdomen, No further bleeding, good bowel prep, Hgb= 10.6 , stable Assessment Assessment: Lower GI Bleed Plan Plan: Continue clear liquids , Plan colonoscopy tomorrow.
[2021-06-04 04:36] LABS: BASOPHILS % (AUTO) 0.5 % (0.2-1.0); EOSINOPHILS # (AUTO) 0.3 x10^3/uL (0.0-0.2); EOSINOPHILS % (AUTO) 4.4 % (0.9-2.9); HEMATOCRIT 24.7 % (42.0-54.0); LYMPHOCYTES # (AUTO) 1.1 X10^3/uL (1.3-2.9); LYMPHOCYTES % (AUTO) 18.5 % (21.0-51.0); MEAN CORPUSCULAR HEMOGLOBIN 23.7 pg (27.0-34.0); MEAN CORPUSCULAR HGB CONC 32.3 g/dL (33.0-35.0); MEAN CORPUSCULAR VOLUME 73.5 fL (80.0-100.0); MEAN PLATELET VOLUME 8.6 fL (7.4-11.0); MONOCYTES # (AUTO) 0.6 x10^3/uL (0.3-0.8); MONOCYTES % (AUTO) 10.5 % (0.0-13.0); NEUTROPHILS # (AUTO) 3.8 x10^3/uL (2.2-4.8); NEUTROPHILS % (AUTO) 66.1 % (42.0-75.0); RED BLOOD COUNT 3.36 X10^6/uL (4.7-6.0); RED CELL DISTRIBUTION WIDTH 22.1 % (11.6-16.5); WHITE BLOOD COUNT 5.7 X10^3/uL (3.6-10.0)
[2021-06-04 05:18] LABS: ANISOCYTOSIS 1+; HYPOCHROMASIA 1+; MICROCYTOSIS SLIGHT; OVALOCYTES PRESENT; PLATELET MORPHOLOGY COMMENT NORMAL (NORMAL)
[2021-06-04 08:45] VITALS: BP 144/65
[2021-06-04] MEDS: PROTONIX INJ 40 MG VIAL IVP SCH (09:30)
[2021-06-04] MEDS: NEURONTIN CAP 300 MG PO SCH (09:30)
[2021-06-04] MEDS: ZESTRIL TAB 40 MG PO SCH (09:30)
[2021-06-04] MEDS: PROSCAR PO SCH (09:30)
[2021-06-04] MEDS: INVanz INJ 1 GRAM VIAL 1 G in NS 100 ML IV 100 ML IV SCH (10:20)
--- NOTE | 2021-06-04 10:59 | W.DIS.FURT ---
Summary of Discharge Discharge Summary of Date Date of Exam: 06/04/21 Admission Date Date of Admission: 06/01/21 Admission Diagnosis Patient Problems (Updated 06/01/21 @ 03:52 by Lance Britton) Acute lower gastrointestinal bleeding (Acute) K92.2 Hospital Course: 76 year old male who had been seen by his primary care doctor last week and treated for presumed diverticulitis on PO Cipro. He presented to the emergency room with bright red blood per rectum . He was admitted for observation. Hemoglobin remained stable at approximately 10 and he underwent bowel prep. Day of colonoscopy hi hemoglobin had decreased to 8. 1. Colonoscopy showed only significant diverticulosis of the sigmoid colon and left colon. There was no active bleeding. He remained on observation overnight and was placed on a regular diet. Follow up hemoglobin was 8 G. He will be discharged home on his usual medications with the exception of Plavix. He will continue his Cipro that he already has to completion and I have recommended Tylenol or Motrin for pain. He will follow up with me in 1 week. Vital Signs: Vital Signs (72 hours) 06/01/21 12:00 06/01/21 14:06 06/01/21 14:36 Temperature 98.3 F Pulse Rate Pulse Rate [Left Brachial] 68 Respiratory Rate 20 20 20 Blood Pressure Blood Pressure [Left Arm] 97/54 O2 Sat by Pulse Oximetry 97 06/01/21 16:03 06/01/21 17:49 06/01/21 18:19 Temperature 97.6 F Pulse Rate Pulse Rate [Left Brachial] 73 Respiratory Rate 20 18 18 Blood Pressure Blood Pressure [Left Arm] 109/57 O2 Sat by Pulse Oximetry 100 06/01/21 20:00 06/01/21 22:32 06/01/21 23:02 Temperature 97.7 F Pulse Rate Pulse Rate [Left Brachial] 79 Respiratory Rate 18 18 18 Blood Pressure Blood Pressure [Left Arm] 121/59 O2 Sat by Pulse Oximetry 100 06/02/21 00:00 06/02/21 04:00 06/02/21 05:26 Temperature 97.4 F L 97.7 F Pulse Rate Pulse Rate [Left Brachial] 80 77 Respiratory Rate 18 18 18 Blood Pressure Blood Pressure [Left Arm] 118/58 111/56 O2 Sat by Pulse Oximetry 98 92 L 06/02/21 05:56 06/02/21 08:00 06/02/21 12:00 Temperature 98.3 F 101.4 F H Pulse Rate Pulse Rate [Left Brachial] 124 H 107 H Respiratory Rate 18 20 20 Blood Pressure Blood Pressure [Left Arm] 111/56 118/57 O2 Sat by Pulse Oximetry 90 L 97 06/02/21 16:00 06/02/21 19:52 06/03/21 00:00 Temperature 98.7 F 99.3 F 98.9 F Pulse Rate Pulse Rate [Left Brachial] 88 88 Respiratory Rate 20 20 Blood Pressure Blood Pressure [Left Arm] 108/54 107/55 O2 Sat by Pulse Oximetry 99 94 L 06/03/21 02:14 06/03/21 02:44 06/03/21 04:00 Temperature 100.0 F H Pulse Rate Pulse Rate [Left Brachial] 92 H Respiratory Rate 20 20 20 Blood Pressure Blood Pressure [Left Arm] 115/56 O2 Sat by Pulse Oximetry 93 L 06/03/21 08:00 06/03/21 09:50 06/03/21 10:05 Temperature 99.9 F H 98.6 F 98.1 F Pulse Rate Pulse Rate [Left Brachial] 97 H 99 H 94 H Respiratory Rate 20 20 20 Blood Pressure Blood Pressure [Left Arm] 126/60 114/57 128/60 O2 Sat by Pulse Oximetry 97 96 97 06/03/21 10:20 06/03/21 10:35 06/03/21 10:50 Temperature 98.1 F 98.5 F 98.3 F Pulse Rate Pulse Rate [Left Brachial] 94 H 20 L 89 Respiratory Rate 20 20 20 Blood Pressure Blood Pressure [Left Arm] 123/58 133/60 127/62 O2 Sat by Pulse Oximetry 97 97 97 06/03/21 11:39 06/03/21 12:00 06/03/21 12:09 Temperature 98.3 F Pulse Rate Pulse Rate [Left Brachial] 82 Respiratory Rate 18 20 18 Blood Pressure Blood Pressure [Left Arm] 138/63 O2 Sat by Pulse Oximetry 98 06/03/21 16:00 06/03/21 19:30 06/03/21 20:09 Temperature 97.8 F 97.6 F Pulse Rate Pulse Rate [Left Brachial] 76 77 Respiratory Rate 20 22 19 Blood Pressure Blood Pressure [Left Arm] 117/56 162/69 O2 Sat by Pulse Oximetry 96 98 06/03/21 20:39 06/03/21 21:36 06/03/21 21:36 Temperature 97.6 F 98.7 F Pulse Rate 77 80 Pulse Rate [Left Brachial] Respiratory Rate 19 22 20 Blood Pressure 162/69 108/54 Blood Pressure [Left Arm] O2 Sat by Pulse Oximetry 98 99 06/03/21 23:51 06/04/21 04:00 06/04/21 08:00 Temperature 98.5 F 98.5 F 97.9 F Pulse Rate Pulse Rate [Left Brachial] 77 85 83 Respiratory Rate 20 20 22 Blood Pressure Blood Pressure [Left Arm] 139/65 134/61 144/65 O2 Sat by Pulse Oximetry 99 98 98 Labs: Laboratory Last Values WBC 5.7 X10^3/uL (3.6-10.0) 06/04/21 03:40 RBC 3.36 X10^6/uL (4.7-6.0) L 06/04/21 03:40 Hgb 8.0 g/dL (13.5-18.0) L 06/04/21 03:40 Hct 24.7 % (42.0-54.0) L 06/04/21 03:40 MCV 73.5 fL (80.0-100.0) L 06/04/21 03:40 MCH 23.7 pg (27.0-34.0) L 06/04/21 03:40 MCHC 32.3 g/dL (33.0-35.0) L 06/04/21 03:40 RDW 22.1 % (11.6-16.5) H 06/04/21 03:40 Plt Count 144 X10^3/uL (150.0-450.0) L 06/04/21 03:40 Plt Count Comment Decreased (ADEQUATE) 06/04/21 03:40 MPV 8.6 fL (7.4-11.0) 06/04/21 03:40 Neut % (Auto) 66.1 % (42.0-75.0) 06/04/21 03:40 Lymph % (Auto) 18.5 % (21.0-51.0) L 06/04/21 03:40 Toombs % (Auto) 10.5 % (0.0-13.0) 06/04/21 03:40 Eos % (Auto) 4.4 % (0.9-2.9) H 06/04/21 03:40 Baso % (Auto) 0.5 % (0.2-1.0) 06/04/21 03:40 Neut # (Auto) 3.8 x10^3/uL (2.2-4.8) 06/04/21 03:40 Lymph # (Auto) 1.1 X10^3/uL (1.3-2.9) L 06/04/21 03:40 Toombs # (Auto) 0.6 x10^3/uL (0.3-0.8) 06/04/21 03:40 Eos # (Auto) 0.3 x10^3/uL (0.0-0.2) H 06/04/21 03:40 Baso # (Auto) 0.0 X10^3/uL (0.0-0.1) 06/04/21 03:40 Absolute Nucleated RBC 0.0 /100WBC 06/04/21 03:40 Plt Morphology Comment Normal (NORMAL) 06/04/21 03:40 RBC Morphology Abnormal (NORMAL) 06/04/21 03:40 Hypochromasia 1+ A 06/04/21 03:40 Anisocytosis 1+ A 06/04/21 03:40 Microcytosis Slight A 06/04/21 03:40 Tear Drop Cells Present 06/02/21 04:05 Ovalocytes Present 06/04/21 03:40 PT 14.3 SECONDS (11.8-14.3) 06/01/21 00:00 INR Target Range - 06/01/21 00:00 INR 1.14 (0.8-1.3) 06/01/21 00:00 APTT 29.3 SECONDS (22.9-36.5) 06/01/21 00:00 PTT Comment - 06/01/21 00:00 Sodium 137 mmol/L (136-145) 06/03/21 04:30 Corrected Sodium TNP 06/03/21 04:30 Potassium 4.2 mmol/L (3.5-5.1) 06/03/21 04:30 Chloride 108 mmol/L (98-107) H 06/03/21 04:30 Carbon Dioxide 21.4 mmol/L (21-32) 06/03/21 04:30 BUN 9 mg/dL (7-18) 06/03/21 04:30 Creatinine 1.13 mg/dL (0.70-1.30) 06/03/21 04:30 Est GFR (MDRD) Af Amer > 60 (>60) 06/03/21 04:30 Est GFR (MDRD) Non-Af > 60 (>60) 06/03/21 04:30 Glucose 94 mg/dL (65-99) 06/03/21 04:30 Calcium 7.5 mg/dL (8.5-10.1) L 06/03/21 04:30 Corrected Calcium 8.8 mg/dL (8.5-10.1) 06/03/21 04:30 Total Bilirubin 0.20 mg/dL (0.2-1.0) 06/03/21 04:30 AST 11 Units/L (15-37) L 06/03/21 04:30 ALT 8 Units/L (12-78) L 06/03/21 04:30 Alkaline Phosphatase 49 Units/L (46-116) 06/03/21 04:30 Total Protein 5.4 g/dL (6.4-8.2) L 06/03/21 04:30 Albumin 2.4 g/dL (3.4-5.0) L 06/03/21 04:30 Globulin 3.0 g/dL (2.5-4.5) 06/03/21 04:30 Albumin/Globulin Ratio 0.8 Ratio (1.1-2.1) L 06/03/21 04:30 Blood Type A POSITIVE 06/01/21 03:05 Antibody Screen Negative 06/01/21 03:05 Reason For Visit: LOWER GI BLEED Discharge Date Discharge Date: 06/04/21 Discharge Diagnosis All Active Problems (Updated 06/01/21 @ 03:52 by Lance Britton) Vertigo (Acute) Bronchopneumonia (Acute) Generalized weakness (Acute) Dizziness (Acute) Frequent falls (Acute) Hypertension (Chronic) Unstable angina (Acute) Acute lower gastrointestinal bleeding (Acute) Plan of Treatment: Continue with present treatment and follow up plan. Pt is to keep follow up appointment as instructed and take medications as ordered. Discharge Medications Discharge Medications: No Known Drug Allergies Allergy (Verified 07/02/17 07:39) CONTINUE taking the following medications ciprofloxacin HCl 500 mg PO BID 05/31/21 [History] donepezil 10 mg PO DAILY 05/31/21 [History] ondansetron HCl 8 mg PO PRN PRN 05/31/21 [History] Follow up and Referral Follow Up: 1 Week (Dr. russo) Discharge Disposition Discharge Disposition: stable Discharge Condition: stable Discharge Plan Discharge Plan Hospital Course: 76 year old male who had been seen by his primary care doctor last week and treated for presumed diverticulitis on PO Cipro. He presented to the emergency room with bright red blood per rectum . He was admitted for observation. Hemoglobin remained stable at approximately 10 and he underwent bowel prep. Day of colonoscopy hi hemoglobin had decreased to 8. 1. Colonoscopy showed only significant diverticulosis of the sigmoid colon and left colon. There was no a ctive bleeding. He remained on observation overnight and was placed on a regular diet. Follow up hemoglobin was 8 G. He will be discharged home on his usual medications with the exception of Plavix. He will continue his Cipro that he already has to completion and I have recommended Tylenol or Motrin for pain. He will follow up with me in 1 week. Patient Disposition: 01 HOME, SELF-CARE Condition: Stable Health Concerns: Post Hospitalization: new medications and changes needed to prevent readmission or further decline. Pt educated and given instructions on all concerns. Care Plan Goals: Problem: Fluid Volume Deficit Goal: Maintain/Improved Adequate hydration. Instructions: Follow provided instructions. Follow up with primary physician as directed. Contact primary care physician or report to the closest Emergency Room if condition worsens. Plan of Treatment: Continue with present treatment and follow up plan. Pt is to keep follow up appointment as instructed and take medications as ordered. Prescriptions: Continued ondansetron HCl 8 mg tablet 8 mg PO PRN PRNRF: 0 donepezil 10 mg tablet 10 mg PO DAILY RF: 0 ciprofloxacin HCl 500 mg tablet 500 mg PO BID RF: 0 gabapentin 300 mg capsule 300 mg PO BID RF: 0 montelukast 10 mg tablet 10 mg PO DAILY RF: 0 lisinopril 40 mg tablet 40 mg PO DAILY RF: 0 finasteride 5 mg tablet 5 mg PO QHS RF: 0 rosuvastatin 40 mg tablet 40 mg PO DAILY RF: 0 Discontinued clopidogrel 75 mg tablet 75 mg PO DAILY RF: 0 Orders to Discharge Patient Discharge Orders: Discharge (Routine); Ordered 06/04/21 Ordered By: Sourav Russo Follow ups/Referrals Follow ups/Referrals: [facility] [Primary Care Provider] - 06/11/21 9:00 am Sourav Russo [STAFF PHYSICIAN] - 1 WEEK Instructions Instructions: Colonoscopy, Adult, Care After, [id number], Chronic Obstructive Pulmonary Disease, [id number], Hypertension, Adult, [id number], Gastrointestinal Bleeding, [id number], Diverticulosis Stand Alone Forms: Excuse From Work or School, Precautions for COVID19, [facility], Patient Portal, Social Distancing Patient Education Addl Reference Links: Acute lower gastrointestinal bleeding [email or web address]=Male&[email or web address].v= 76&age.[email or web address].u=a&performer=PROV&informationRecipient=PAT&performer.languageCode.c=en &mainSearchCriteria.v.k=[id number]&mainSearchCriteria.v.cs=[id number]& mainSearchCriteria.v.dn=Acute+lower+kam[place] rointestinal+bleeding&mainSearchCriteria.v.l6=806.9&mainSearchCriteria.v.cs1=2.1 [id number]&mainSearchCriteria.v.dn1=Acute+lower+gastrointestinal+bleed ing&mainSearchCriteria.v.c2=K92.2&mainSe archCriteria.v.cs2=[id number]&mainSearchCriteria.v.dn2=Acute+lower+g astrointestinal+bleeding
--- NOTE | 2021-06-04 13:58 | DR.OPNOTE ---
OP NOTE Pre-Op Diagnosis: Lower GI bleed Post-Op Diagnosis: Same, diverticulosis of the sigmoid and left colons Procedure Date Date Of Procedure: 06/03/21 Procedure: PROCEDURE: FLEXIBLE COLONOSCOPY NARRATIVE : This patient was taken to the endoscopy suite and given IV sedation. He was placed in the left lateral position. Time out for the procedure obtained . He had undergone a bowel prep the day before. The bowel prep proved to be excellent. Flexible colonoscope introduced into the anus and taken all the way to the cecum without difficulty. On withdrawing the scope there was moderate to severe diverticulosis of the sigmoid and left colon but no active bleeding. Scope withdrawn and the patient tolerated this well. Anesthesia Comment: MAC Findings: Severe diverticulosis of the sigmoid and left colon. No active bleeding Specimen/Pathology: none Type of Fluids Used:: Lactated Ringers EBL: none Complications:: none Needle/Sponge Count:: correct Disposition/Condition: Pt. tolerated procedure without difficulty. Extubated in the OR and taken to PACU in stable condition.
== END 2021-06-04 09:45 | disposition home or self-care (01) ==
LOC: MED/SURG 23:25 → ER 23:25 → MED/SURG 06-01 04:04
PROVIDERS: ADMIT Surgery; ATTEND Surgery